=== PATIENT | male | born 1980 | race Caucasian/White ===

== ENCOUNTER 2019-11-07 10:29 | Emergency (ER) | payer SELFPAY ==
[2019-11-07] MEDS ORDERED: METOPROLOL TARTRATE 5 MG/5 ML INJ IV ONE ×3 (11:03→12:26)
[2019-11-07 11:18] LABS: Absolute Lymphocytes (CBC) 1.9 K/uL (0.7-4.9); Basophils % 0.9 % (0-1.3); Hematocrit 49.7 % (39.6-49.0); Lymphocytes % 24.3 % (15.3-44.8); MPV 9.3 fL (7.6-11.3); RBC Red Blood Cell Count 4.94 M/uL (4.33-5.43)
--- NOTE | 2019-11-07 11:18 | RAD REPORT ---
EXAM DESCRIPTION: RAD - Chest Single View - 11/07/2019 11:01 am CLINICAL HISTORY: CHEST PAIN Chest pain. COMPARISON: No comparisons FINDINGS: Portable technique limits examination quality. The lungs are grossly clear. The heart is normal in size. No displaced fractures. IMPRESSION: No acute intrathoracic process suspected.
[2019-11-07 11:19] LABS: Protime INR 0.88
[2019-11-07 11:24] LABS: Urine Blood NEGATIVE (NEG); Urine Glucose NEGATIVE (NEG); Urine Protein 2+ (NEG); Urine Specific Gravity >1.030 (1.005-1.030)
[2019-11-07 11:34] LABS: ALT/SGPT 98 U/L (12-78); AST/SGOT 98 U/L (15-37); Albumin 4.3 g/dL (3.4-5.0); Alkaline Phosphatase 95 U/L (45-117); BUN Blood Urea Nitrogen 11 mg/dL (7-18); Bicarbonate 26 mmol/L (21-32); Bilirubin Direct 0.4 mg/dL (0-0.2); Bilirubin Total 1.7 mg/dL (0.2-1.0); Glucose Level 120 mg/dL (74-106); Magnesium 2.1 mg/dL (1.8-2.4); NT PRO-BNP 877 pg/mL (<125); Potassium 3.9 mmol/L (3.5-5.1); Protein, Total 8.3 g/dL (6.4-8.2); Sodium Level 141 mmol/L (136-145); Troponin (Emerg Dept Use Only) < 0.02 ng/mL (0.0-0.045)
[2019-11-07] MEDS ORDERED: MORPHINE 4 MG/ML SYR ONE (11:39)
[2019-11-07 12:01] LABS: Barbiturates NEGATIVE (NEGATIVE); Benzodiazepines NEGATIVE (NEGATIVE); Cocaine NEGATIVE (NEGATIVE); METHAMPHETAM NEGATIVE (NEGATIVE); Methadone NEGATIVE (NEGATIVE); Opiates NEGATIVE (NEGATIVE); Phencyclidine NEGATIVE (NEGATIVE); THC Cannibis POSITIVE (NEGATIVE)
[2019-11-07] MEDS ORDERED: METOPROLOL TAR 50 MG TAB ONE (13:13)
[2019-11-07] MEDS ORDERED: RIVAROXABAN 20 MG TABLET PO ONE (13:30)
--- NOTE | 2019-11-07 14:27 | ER ---
Nurse's Notes [facility] Name: Andi Yusuf Age: 38 yrs Sex: Male : 1980 Arrival Date: 11/07/2019 Time: 10:30 Bed 17 Private MD: Diagnosis: Atrial fibrillation and flutter Presentation: 11/06 10:42 Chief complaint: Patient states: Chest pain, palpitations, SOB since 1030 last night, ph hx of a fib, takes metoprolol and xarelto but has been out of xarelto for 3 days. Coronavirus screen: Patient denies a cough. Patient reports shortness of breath or difficulty breathing. Patient denies measured and/or subjective temperature greater than 100.4F prior to today's visit. Patient denies travel on a cruise ship or to a country the [facility] currently lists as an affected area. Patient denies contact with known and/or suspected case of COVID-19. Ebola Screen: No symptoms or risks identified at this time. Initial Sepsis Screen: Does the patient meet any 2 criteria? No. Patient's initial sepsis screen is negative. Does the patient have a suspected source of infection? No. Patient's initial sepsis screen is negative. Risk Assessment: Do you want to hurt yourself or someone else? Patient reports no desire to harm self or others. Onset of symptoms was November 07, 2019. 10:42 Method Of Arrival: Wheelchair 10:42 Acuity: ANABELLE 2 ph Triage Assessment: 10:45 General: Appears in no apparent distress. uncomfortable, Behavior is cooperative, bp appropriate for age, anxious. Pain: Complains of pain in chest. EENT: No deficits noted. Neuro: Level of Consciousness is awake, alert, obeys commands, Oriented to person, place, time, situation, Appropriate for age. Cardiovascular: Rhythm is atrial fibrillation with rapid ventricular response. Respiratory: Airway is patent Respiratory effort is even, unlabored, Respiratory pattern is regular, symmetrical. GI: Reports nausea. : No signs and/or symptoms were reported regarding the genitourinary system. Derm: No deficits noted. Musculoskeletal: No deficits noted. Historical: - Allergies: 10:45 No Known Allergies; ph - Home Meds: 10:45 Xarelto oral oral [Active]; Metoprolol Tartrate Oral [Active]; ph - PMHx: 10:45 Atrial Fib; Diverticulitis; ph - PSHx: 10:45 colon resection; ph - Immunization history:: Adult Immunizations unknown. - Social history:: Smoking status: Patient reports the use of cigarette tobacco products, smokes one pack cigarettes per day. Screenin:45 Abuse screen: Denies threats or abuse. Denies injuries from another. Nutritional bp screening: No deficits noted. Tuberculosis screening: No symptoms or risk factors identified. Fall Risk None identified. Assessment: 10:45 General: SEE TRIAGE NOTE. Pain: Pain does not radiate. Pain began 1 day ago. bp 11:45 Reassessment: Patient and/or family updated on plan of care and expected duration. Pain ah level reassessed. No needs voiced at this time. 12:45 Reassessment: Patient and/or family updated on plan of care and expected duration. Pain ah level reassessed. Pt states that pain is better but not completely gone. No needs voiced at this time. 13:44 Reassessment: Explained to pt that we are waiting on a medication from pharmacy. Called pharmacy to check on med and they stated that they have been in a meeting and will bring it shortly. Pt voiced understanding. No other needs voiced at this time. 14:30 Reassessment: Discharge instructions given at this time. Advised Pt to follow up with lamp shades supervisor as directed. Pt voiced understanding. Educated on prescription. Vital Signs: 10:42 BP 150 / 122; Pulse 138; Resp 14; Temp 98.3(O); Pulse Ox 98% on R/A; Weight 108.86 kg; ph Height 6 ft. 3 in. (190.50 cm); Pain 9/10; 11:00 BP 159 / 127; Pulse 115; Resp 16; Pulse Ox 98% ; bp 11:10 BP 135 / 92; Pulse 108; Resp 20; Pulse Ox 97% ; ah 11:20 BP 142 / 118; Pulse 105; Resp 20; Pulse Ox 98% ; ah 11:30 BP 145 / 118; Pulse 105; Resp 22; Pulse Ox 97% ; ah 13:00 BP 155 / 114; Pulse 115; Resp 15; Pulse Ox 97% ; ah 14:10 BP 145 / 98; Pulse 103; Resp 16; Pulse Ox 98% ; 10:42 Body Mass Index 30.00 (108.86 kg, 190.50 cm) ph ED Course: 10:30 Patient arrived in ED. mr 10:35 Nadeen Hemphill, RN is Primary Nurse. 10:35 Sherif Barron MD is Attending Physician. 7 10:44 Triage completed. ph 10:45 Inserted saline lock: 18 gauge in right antecubital area, using aseptic technique. bp Blood collected. 10:45 Arm band placed on. bp 10:45 Patient has correct armband on for positive identification. Bed in low position. Call bp light in reach. Side rails up X2. business technology analyst on. Pulse ox on. NIBP on. 11:02 XRAY Chest (1 view) In Process Unspecified. EDMS 14:26 Annika Mercedes MD is Referral Physician. 7 14:26 Maurice Li MD is Referral Physician. [facility] 14:30 No provider procedures requiring assistance completed. IV discontinued, intact, ah bleeding controlled, No redness/swelling at site. Patient maintains SpO2 saturation greater than 95% on room air. Administered Medications: 11:05 Drug: Lopressor 5 mg Route: IVP; Site: right antecubital; 12:05 Follow up: Response: No adverse reaction 11:35 Drug: morphine 4 mg Route: IVP; Site: right antecubital; 17:04 Follow up: Response: No adverse reaction 11:38 Drug: Lopressor 5 mg Route: IVP; Site: right antecubital; 12:30 Follow up: Response: No adverse reaction 12:20 Drug: Metoprolol 5 mg Route: IVP; Site: right antecubital; 13:46 Follow up: Response: No adverse reaction 13:15 Drug: Metoprolol TARTRATE (Lopressor) 50 mg Route: PO; 14:15 Follow up: Response: No adverse reaction 14:22 Drug: Xarelto 20 mg Route: PO; 5 17:01 Follow up: Response: No adverse reaction; Medication administered at discharge. Outcome: 14:27 Discharge ordered by . 7 14:30 Discharged to home ambulatory. 14:30 Condition: good 14:30 Discharge instructions given to patient, Instructed on discharge instructions, follow up and referral plans. medication usage, Demonstrated understanding of instructions, follow-up care, medications, Prescriptions given X 1. 15:00 Patient left the ED. Signatures: Dispatcher [employer] EDMS Whitley Jean RN RN dm5 Nola Javier Vesta Sims RN RN ph Peltier, Brian, RN RN bp Harris, Amy, RN RN ah Holmes, Maurice, MD MD mh7
--- NOTE | 2019-11-07 14:28 | EDPHYS ---
Physician Documentation [facility] Name: Andi Yusuf Age: 38 yrs Sex: Male : 1980 Arrival Date: 11/07/2019 Time: 10:30 Bed 17 Private MD: ED Physician Sherif Barron HPI: 11/06 10:49 This 38 yrs old Male presents to ER via Wheelchair with complaints of Chest mh7 Pain. 10:49 The patient or guardian reports chest pain that is located primarily in the substernal mh7 area. Onset: yesterday. The pain does not radiate. Associated signs and symptoms: Pertinent positives: nausea, palpitations, shortness of breath, Pertinent negatives: abdominal pain, cough, diaphoresis, dizziness, headache, lower extremity pain, lower extremity swelling, lightheadedness, near syncope, recent travel, syncope. The chest pain is described as stabbing. Duration: The patient or guardian reports multiple episodes, that are intermittent, that wax and wane, with no pattern. Modifying factors: The symptoms are alleviated by nothing. the symptoms are aggravated by nothing. Severity of pain: At its worst the pain was moderate last night, in the emergency department the pain is unchanged. The patient has experienced similar episodes in the past, multiple times. Historical: - Allergies: 10:45 No Known Allergies; ph - Home Meds: 10:45 Xarelto oral oral [Active]; Metoprolol Tartrate Oral [Active]; ph - PMHx: 10:45 Atrial Fib; Diverticulitis; ph - PSHx: 10:45 colon resection; ph - Immunization history:: Adult Immunizations unknown. - Social history:: Smoking status: Patient reports the use of cigarette tobacco products, smokes one pack cigarettes per day. ROS: 10:49 Constitutional: Negative for fever, chills, and weight loss, Eyes: Negative for injury, mh7 pain, redness, and discharge, ENT: Negative for injury, pain, and discharge, Neck: Negative for injury, pain, and swelling, Back: Negative for injury and pain, : Negative for injury, bleeding, discharge, and swelling, MS/Extremity: Negative for injury and deformity, Skin: Negative for injury, rash, and discoloration, Neuro: Negative for headache, weakness, numbness, tingling, and seizure, Psych: Negative for depression, anxiety, suicide ideation, homicidal ideation, and hallucinations, Allergy/Immunology: Negative for hives, rash, and allergies, Endocrine: Negative for neck swelling, polydipsia, polyuria, polyphagia, and marked weight changes, Hematologic/Lymphatic: Negative for swollen nodes, abnormal bleeding, and unusual bruising. Exam: 10:49 Constitutional: This is a well developed, well nourished patient who is awake, alert, mh7 and in no acute distress. Head/Face: Normocephalic, atraumatic. Eyes: Pupils equal round and reactive to light, extra-ocular motions intact. Lids and lashes normal. Conjunctiva and sclera are non-icteric and not injected. Cornea within normal limits. Periorbital areas with no swelling, redness, or edema. Neck: Trachea midline, no thyromegaly or masses palpated, and no cervical lymphadenopathy. Supple, full range of motion without nuchal rigidity, or vertebral point tenderness. No Meningismus. Chest/axilla: Normal chest wall appearance and motion. Nontender with no deformity. No lesions are appreciated. 10:49 Abdomen/GI: Soft, non-tender, with normal bowel sounds. No distension or tympany. No guarding or rebound. No evidence of tenderness throughout. Back: No spinal tenderness. No costovertebral tenderness. Full range of motion. Skin: Warm, dry with normal turgor. Normal color with no rashes, no lesions, and no evidence of cellulitis. MS/ Extremity: Pulses equal, no cyanosis. Neurovascular intact. Full, normal range of motion. Neuro: Awake and alert, GCS 15, oriented to person, place, time, and situation. Cranial nerves II-XII grossly intact. Motor strength 5/5 in all extremities. Sensory grossly intact. Cerebellar exam normal. Normal gait. Psych: Awake, alert, with orientation to person, place and time. Behavior, mood, and affect are within normal limits. 10:49 Cardiovascular: Rate: tachycardic, Rhythm: irregularly irregular, Pulses: no pulse deficits are appreciated, Heart sounds: normal, normal S1and S2, Edema: is not appreciated, JVD: is not appreciated. 10:57 ECG was reviewed by the Attending Physician. [facility] Vital Signs: 10:42 BP 150 / 122; Pulse 138; Resp 14; Temp 98.3(O); Pulse Ox 98% on R/A; Weight 108.86 kg; ph Height 6 ft. 3 in. (190.50 cm); Pain 9/10; 11:00 BP 159 / 127; Pulse 115; Resp 16; Pulse Ox 98% ; bp 11:10 BP 135 / 92; Pulse 108; Resp 20; Pulse Ox 97% ; ah 11:20 BP 142 / 118; Pulse 105; Resp 20; Pulse Ox 98% ; ah 11:30 BP 145 / 118; Pulse 105; Resp 22; Pulse Ox 97% ; ah 13:00 BP 155 / 114; Pulse 115; Resp 15; Pulse Ox 97% ; ah 14:10 BP 145 / 98; Pulse 103; Resp 16; Pulse Ox 98% ; ah 10:42 Body Mass Index 30.00 (108.86 kg, 190.50 cm) ph MDM: 10:46 Patient medically screened. 7 14:24 Differential diagnosis: acute myocardial infarction, coronary artery disease chest wall mh7 pain, costochondritis, myocarditis, arryhtmia. Data reviewed: vital signs, nurses notes, lab test result(s), cardiac enzymes, CBC, electrolytes, urinalysis, urine drug screen, EKG, radiologic studies, plain films. Physician consultation: Annika Mercedes MD was contacted at 12:55, and will see patient in office. 19:46 HEART Score: History: Slightly Suspicious (0), ECG: Non specific repolarization mh7 disturbance / LBTB / PM (1), Age: < or = 45 years (0), Risk Factors: No Risk Factors Known (0), Troponin: < or = 1 x Normal Limit (0), Total Score = 1. Data interpreted: polygraph operator: rate is 95 beats/min, rhythm is atrial fibrillation, Interpretation: atrial fibrillation, Pulse oximetry: on room air is 98 %. Interpretation: normal. Counseling: I had a detailed discussion with the patient and/or guardian regarding: the historical points, exam findings, and any diagnostic results supporting the discharge/admit diagnosis, the presence of at least one elevated blood pressure reading (>120/80) during this emergency department visit, lab results, radiology results, the need for outpatient follow up, to return to the emergency department if symptoms worsen or persist or if there are any questions or concerns that arise at home. ED course: Well appearing, NAD, VSS, no focal neurological deficits. Discussed with patient's biology research assistant Dr. Mercedes who wanted patient to receive medication in the ED then follow up in the office tomorrow. Discussed all test results and recommendations with the patient and answered all of his questions. He will follow up with his doctor but agreed to return to the ED if worsening of symptoms or other concerns.. 11/06 10:46 Order name: Basic Metabolic Panel; Complete Time: 12:12 7 11/06 10:46 Order name: CBC with Diff; Complete Time: 12:12 7 11/06 10:46 Order name: LFT's; Complete Time: 12:12 [facility] 11/06 10:46 Order name: Magnesium; Complete Time: 12:12 [facility] 11/06 10:46 Order name: NT PRO-BNP; Complete Time: 12:12 7 11/06 10:46 Order name: PT-INR; Complete Time: 12:12 [facility] 11/06 10:46 Order name: Troponin (emerg Dept Use Only); Complete Time: 12:12 [facility] 11/06 10:46 Order name: XRAY Chest (1 view); Complete Time: 12:12 [facility] 11/06 10:46 Order name: UDS; Complete Time: 12:12 [facility] 11/06 11:10 Order name: Urine Dipstick--Ancillary (enter results) bd 11/06 12:33 Order name: TSH; Complete Time: 13:50 7 11/06 10:46 Order name: EKG; Complete Time: 10:48 [facility] 11/06 10:46 Order name: Cardiac monitoring; Complete Time: 10:57 [facility] 11/06 10:46 Order name: EKG - Nurse/Tech; Complete Time: 10:57 11/06 10:46 Order name: IV Saline Lock; Complete Time: 10:58 11/06 10:46 Order name: Labs collected and sent; Complete Time: 10:59 [facility] 11/06 10:46 Order name: O2 Per Protocol; Complete Time: 10:59 [facility] 11/06 10:46 Order name: O2 Sat Monitoring; Complete Time: 10:59 mh7 EC:57 Rate is 108 beats/min. Rhythm is irregularly irregular, A fib. QRS [place] is Normal. [place] mh7 interval is normal. QRS interval is normal. QT interval is normal. No Q waves. T waves are Normal. No ST changes noted. Clinical impression: Atrial Fibrillation. Administered Medications: 11:05 Drug: Lopressor 5 mg Route: IVP; Site: right antecubital; 12:05 Follow up: Response: No adverse reaction ah 11:35 Drug: morphine 4 mg Route: IVP; Site: right antecubital; ah 17:04 Follow up: Response: No adverse reaction 11:38 Drug: Lopressor 5 mg Route: IVP; Site: right antecubital; ah 12:30 Follow up: Response: No adverse reaction ah 12:20 Drug: Metoprolol 5 mg Route: IVP; Site: right antecubital; ah 13:46 Follow up: Response: No adverse reaction 13:15 Drug: Metoprolol TARTRATE (Lopressor) 50 mg Route: PO; ah 14:15 Follow up: Response: No adverse reaction 14:22 Drug: Xarelto 20 mg Route: PO; dm5 17:01 Follow up: Response: No adverse reaction; Medication administered at discharge. Disposition: 11/07/19 14:27 Discharged to Home. Impression: Atrial fibrillation and flutter. - Condition is Stable. - Discharge Instructions: Atrial Fibrillation, [id number]. - Prescriptions for Xarelto 20 mg Oral Tablet - take 1 tablet by ORAL route once daily; 30 tablet. - Medication Reconciliation Form, Thank You Letter, Antibiotic Education, Prescription Opioid Use form. - Follow up: Annika Mercedes MD; When: Tomorrow; Reason: Worsening of condition, Continuance of care. Follow up: Maurice Li MD; When: 1 - 2 days; Reason: Worsening of condition, Recheck today's complaints. - Problem is an acute exacerbation. - Symptoms have improved. Signatures: Dispatcher [employer] EDMS Whitley Jean RN RN dm5 Vesta Sims RN RN Nadeen Hemphill RN RN Sherif Barron MD MD mh7 Corrections: (The following items were deleted from the chart) 15:00 14:27 11/07/2019 14:27 Discharged to Home. Impression: Atrial fibrillation and flutter. Condition is Stable. Forms are Medication Reconciliation Form, Thank You Letter, Antibiotic Education, Prescription Opioid Use. Follow up: Annika Mercedes; When: Tomorrow; Reason: Worsening of condition, Continuance of care. Follow up: Maurice Li; When: 1 - 2 days; Reason: Worsening of condition, Recheck today's complaints. Problem is an acute exacerbation. Symptoms have improved. mh7
[2019-11-07 15:09] VITALS: TEMP 98.3
[2019-11-07 15:17] VITALS: BP 145/98; O2SAT 98
--- NOTE | 2019-11-08 16:31 | EKG ---
Test Date: 2019-11-07 Test Time: 10:53:16 Bottle Washing Machine Operator: LAUREN MEASUREMENT RESULTS: Intervals: Rate: 108 [place]: QRSD: 94 QT: 356 QTc: 477 [place]: P: VA: QRS: 14 T: 8 INTERPRETIVE STATEMENTS: Atrial fibrillation with rapid ventricular response Incomplete right bundle branch block Abnormal ECG No previous ECG available for comparison Electronically Signed On 11-08-19 16:27:45 CDT by Maurice Li
--- NOTE | 2019-11-08 16:31 | EKG ---
Test Date: 2019-11-07 Test Time: 12:49:21 Site Supervisor: LAUREN MEASUREMENT RESULTS: Intervals: Rate: 104 [place]: QRSD: 94 QT: 372 QTc: 489 [place]: P: DE: QRS: 2 T: 8 INTERPRETIVE STATEMENTS: Atrial fibrillation with rapid ventricular response Incomplete right bundle branch block Abnormal ECG Compared to ECG 11/07/2019 10:53:16 No significant changes Electronically Signed On 11-08-19 16:27:44 CDT by Maurice Li
== END 2019-11-07 15:00 | disposition home or self-care (01) ==
LOC: ER 10:29
DX: I48.91 Unspecified atrial fibrillation (principal); I48.92 Unspecified atrial flutter
CPT/HCPCS: 36415; 71045; 80048; 80076; 80307; 81003; 83735; 83880; 84443; 84484; 85025; 85610; 93005; 96374; 96375; 99285

== ENCOUNTER 2019-11-15 03:53 | Emergency (ER) | payer SELFPAY ==
[2019-11-15 04:21] LABS: Absolute Lymphocytes (CBC) 3.3 K/uL (0.7-4.9); Basophils % 0.8 % (0-1.3); Hematocrit 43.9 % (39.6-49.0); Lymphocytes % 33.1 % (15.3-44.8); MPV 8.9 fL (7.6-11.3); RBC Red Blood Cell Count 4.32 M/uL (4.33-5.43)
[2019-11-15] MEDS ORDERED: HYDROCODONE/APAP 5/325 MG TAB ONE (04:25)
[2019-11-15 04:28] LABS: Protime INR 0.84
[2019-11-15 04:47] LABS: ALT/SGPT 35 U/L (12-78); AST/SGOT 21 U/L (15-37); Alkaline Phosphatase 92 U/L (45-117); BUN Blood Urea Nitrogen 10 mg/dL (7-18); Bicarbonate 26 mmol/L (21-32); Bilirubin Direct 0.2 mg/dL (0-0.2); Bilirubin Total 0.6 mg/dL (0.2-1.0); Glucose Level 98 mg/dL (74-106); NT PRO-BNP 1246 pg/mL (<125); Potassium 3.7 mmol/L (3.5-5.1); Protein, Total 7.7 g/dL (6.4-8.2); Sodium Level 142 mmol/L (136-145); Troponin (Emerg Dept Use Only) < 0.02 ng/mL (0.0-0.045)
--- NOTE | 2019-11-15 06:53 | EKG ---
Test Date: 2019-11-15 Test Time: 04:01:47 Agile Project Manager: RADHA MEASUREMENT RESULTS: Intervals: Rate: 106 MT: QRSD: 98 QT: 358 QTc: 475 [place]: P: MT: QRS: 3 T: 21 INTERPRETIVE STATEMENTS: Atrial fibrillation with rapid ventricular response with premature ventricular or aberrantly conducted complexes Incomplete right bundle branch block Abnormal ECG Compared to ECG 11/07/2019 12:49:21 Ventricular premature complex(es) now present Electronically Signed On 11-15-19 06:53:05 CDT by Maurice Li
[2019-11-15] MEDS ORDERED: METOPROLOL XL 50 MG TAB PO ONE (07:02)
[2019-11-15] MEDS ORDERED: KETOROLAC 30 MG/ML INJ ONE (07:02)
--- NOTE | 2019-11-15 07:16 | RAD REPORT ---
EXAM DESCRIPTION: CT - Maxillofacial W/Cont - 11/15/2019 6:56 am CLINICAL HISTORY: Facial pain, left-sided facial swelling COMPARISON: None. TECHNIQUE: Axial 3 mm thick images of the paranasal sinuses were obtained following dynamic enhancem ent using nonionic IV contrast. Coronal and sagittal reformatted images were reviewed. All CT scans are performed using dose optimization technique as appropriate and may include automated exposure control or mA/KV adjustment according to patient size. FINDINGS: Edematous/inflammatory stranding present in the soft tissues along the lateral margin left -side mandible. This extends from the mandible level to the skin surface. Hypervascularity is noted i n this region. There is no air or foreign body present. There is a broken tooth in this region with l ucency around the dental roots. No erosive or destructive changes in the mandible. No abscess or drai nable fluid collection identifiable at this time. Patient has a broken tooth on the right without stranding or edema. There is a small focus of disrupt ed cortex believed to be related to dentition and not a nerve root. Parotid and submandibular tissue show no suspicious findings. No suspicious lymphadenopathy. Pharynge al mucosa shows no abnormality. No tonsillar or tongue base abnormality. Epiglottis is unremarkable. Vocal cords are not fully imaged on this study. IMPRESSION: Infectious/ inflammatory edema and hypervascularity in the soft tissues in the midline a nd left-side mandible region. No air or foreign body is present. Patient has at least 1 broken tooth in this region with lucency around the dental roots. There may be some thinning but no gross cortical disruption. This may be the source for the infectious/ inflammat ory changes. Currently no abscess or drainable fluid collection is defined. Patient has a broken tooth on the right side with disruption of the lateral cortical margin of the ma ndible. There is no infectious/ inflammatory change in this region.
--- NOTE | 2019-11-15 07:18 | RAD REPORT ---
EXAM DESCRIPTION: CT - Chest For Pe Angio - 11/15/2019 6:56 am CLINICAL HISTORY: CHEST PAIN COMPARISON: Chest Single View dated 11/15/2019 TECHNIQUE: Dynamically enhanced 3 mm thick images of the chest were obtained during administration o f approximately 150mL Isovue 370 IV contrast. Coronal and oblique MIP reconstruction images were gene rated and reviewed. Exam utilizes a protocol to evaluate the pulmonary arterial tree. All CT scans are performed using dose optimization technique as appropriate and may include automated exposure control or mA/KV adjustment according to patient size. FINDINGS: No pulmonary emboli are identified. The aorta as imaged shows no acute or suspicious finding. No pericardial thickening or effusion. Hear t is mildly enlarged. No infiltrate or mass in the lung parenchyma. No pleural effusion or pleural thickening. No mediastinal or hilar suspicious masses. No chest wall masses or abnormal axillary lymphadenopathy. IMPRESSION: No pulmonary emboli identified. Cardiomegaly without other findings of significant failure or volume overload.
[2019-11-15] MEDS ORDERED: MORPHINE 4 MG/ML SYR ONE (07:59)
[2019-11-15] MEDS ORDERED: ONDANSETRON 4 MG/2 ML VIAL ONE (07:59)
[2019-11-15] MEDS ORDERED: METOPROLOL TARTRATE 5 MG/5 ML INJ IV ONE (08:00)
[2019-11-15] MEDS ORDERED: LIDOCAINE 1% W/EPI 1:100,000 MDV 20 ML VIAL ONE (08:00)
--- NOTE | 2019-11-15 08:04 | EDPHYS ---
Physician Documentation [facility] Name: Andi Yusuf Age: 38 yrs Sex: Male : 1980 Arrival Date: 11/15/2019 Time: 03:56 Bed 8 Private MD: ED Physician Ricardo Domínguez HPI: 11/14 04:16 This 38 yrs old Male presents to ER via Ambulatory with complaints of mh7 Palpitations. Facial Swelling. 04:16 The patient presents with a history of irregular heart beat. Context: The symptoms mh7 occur during sleep. Onset: The symptoms/episode began/occurred today. Duration: The patient or guardian reports multiple episodes, that are intermittent, that wax and wane, with no pattern. Modifying factors: The symptoms are aggravated by nothing. The symptoms are alleviated by nothing. Associated signs and symptoms: Pertinent negatives: chest pain, cough, fever, lightheadedness, nausea, SOB, syncope, near-syncope, unusual stressors, vertigo, vomiting. Severity of symptoms: At their worst the symptoms were moderate today, in the emergency department the symptoms have improved moderately. The patient has experienced similar episodes in the past, multiple times. The patient has been recently seen at the [facility] Emergency Department, last week. Historical: - Allergies: 04:01 No Known Allergies; sg - Home Meds: 04:15 Metoprolol Tartrate Oral [Active]; Xarelto Oral [Active]; mg2 - PMHx: 04:01 Atrial Fib; Diverticulitis; sg - PSHx: 04:01 colon resection; sg - Immunization history:: Adult Immunizations up to date. - Social history:: Smoking status: Patient denies any tobacco usage or history of. ROS: 04:16 Constitutional: Negative for fever, chills, and weight loss, Eyes: Negative for injury, mh7 pain, redness, and discharge. 04:16 Neck: Negative for injury, pain, and swelling, Respiratory: Negative for shortness of breath, cough, wheezing, and pleuritic chest pain, Abdomen/GI: Negative for abdominal pain, nausea, vomiting, diarrhea, and constipation, Back: Negative for injury and pain, : Negative for injury, bleeding, discharge, and swelling, MS/Extremity: Negative for injury and deformity. 04:16 Neuro: Negative for headache, weakness, numbness, tingling, and seizure, Psych: Negative for depression, anxiety, suicide ideation, homicidal ideation, and hallucinations, Allergy/Immunology: Negative for hives, rash, and allergies, Endocrine: Negative for neck swelling, polydipsia, polyuria, polyphagia, and marked weight changes, Hematologic/Lymphatic: Negative for swollen nodes, abnormal bleeding, and unusual bruising. 04:16 ENT: Positive for left facial swelling. 04:16 Skin: Positive for swelling, of the left face. 04:16 Skin: Positive for pain left face. Exam: 04:25 Constitutional: This is a well developed, well nourished patient who is awake, alert, mh7 and in no acute distress. 04:25 Eyes: Pupils equal round and reactive to light, extra-ocular motions intact. Lids and lashes normal. Conjunctiva and sclera are non-icteric and not injected. Cornea within normal limits. Periorbital areas with no swelling, redness, or edema. ENT: Nares patent. No nasal discharge, no septal abnormalities noted. Tympanic membranes are normal and external auditory canals are clear. Oropharynx with no redness, swelling, or masses, exudates, or evidence of obstruction, uvula midline. Mucous membranes moist. Neck: Trachea midline, no thyromegaly or masses palpated, and no cervical lymphadenopathy. Supple, full range of motion without nuchal rigidity, or vertebral point tenderness. No Meningismus. Chest/axilla: Normal chest wall appearance and motion. Nontender with no deformity. No lesions are appreciated. 04:25 Respiratory: Lungs have equal breath sounds bilaterally, clear to auscultation and percussion. No rales, rhonchi or wheezes noted. No increased work of breathing, no retractions or nasal flaring. Abdomen/GI: Soft, non-tender, with normal bowel sounds. No distension or tympany. No guarding or rebound. No evidence of tenderness throughout. Back: No spinal tenderness. No costovertebral tenderness. Full range of motion. 04:25 MS/ Extremity: Pulses equal, no cyanosis. Neurovascular intact. Full, normal range of motion. Neuro: Awake and alert, GCS 15, oriented to person, place, time, and situation. Cranial nerves II-XII grossly intact. Motor strength 5/5 in all extremities. Sensory grossly intact. Cerebellar exam normal. Normal gait. 04:25 Head/face: Noted is swelling, that is mild, of the left cheek, tenderness, that is mild, of the left cheek. 04:25 Cardiovascular: Rate: tachycardic, Rhythm: irregularly irregular, Pulses: no pulse deficits are appreciated, Heart sounds: normal, normal S1and S2, Edema: is not appreciated, JVD: is not appreciated. 04:25 ECG was reviewed by the Attending Physician. Vital Signs: 04:01 BP 162 / 119; Pulse 113; Resp 18; Temp 97.9; Pulse Ox 98% ; Weight 113.4 kg; ea 05:10 BP 145 / 104; Pulse 95; Resp 18; Pulse Ox 99% on R/A; mg2 06:46 BP 160 / 114; Pulse 101; Resp 18; Pulse Ox 100% on R/A; Pain 8/10; mg2 07:21 BP 152 / 108; Pulse 91 MON; Resp 18; Pulse Ox 100% ; sv 08:20 BP 146 / 114; Pulse 76 MON; Resp 17; Pulse Ox 100% ; sv 07:21 A flutter sv 08:20 A flutter sv NIH Stroke Scale Scores: 04:02 NIHSS Score: 1 sg Procedures: 07:53 I \T\ D: Incision and drainage was performed for an abscess of the left Prepped with elvira Betadine, Anesthetized with 5 ml's 1% Lidocaine w/ Epi. Incised with #11 blade. Drained small amount Packed with iodoform gauze, Dressing: sterile 4x4 gauze, the patient tolerated the procedure well. MDM: 04:12 Patient medically screened. [facility] 07:53 Data reviewed: vital signs, nurses notes. Data interpreted: residential monitor: rate is 91 elvira beats/min, Pulse oximetry: on room air is 100 %. Test interpretation: by ED physician or midlevel provider: ECG, plain radiologic studies. Counseling: I had a detailed discussion with the patient and/or guardian regarding: the historical points, exam findings, and any diagnostic results supporting the discharge/admit diagnosis, lab results, radiology results, the need for outpatient follow up, for definitive care, a oreman. Medication response: Zofran markedly relieved the patient's nausea. 07:56 ED course: pt taken over from dr lee, a fib with rvr, not taking meds and co of left elvira facial abscess, swelling and increasing pain, incise and drained abscess , see note. pt explained and understands. 11/14 04:07 Order name: Basic Metabolic Panel; Complete Time: 05:09 mg2 11/14 04:07 Order name: CBC with Diff; Complete Time: 04:45 mg2 11/14 04:07 Order name: LFT's; Complete Time: 05:09 mg2 11/14 04:07 Order name: Magnesium; Complete Time: 05:09 mg2 11/14 04:07 Order name: NT PRO-BNP; Complete Time: 05:09 mg2 11/14 04:07 Order name: PT-INR; Complete Time: 04:45 mg2 11/14 04:07 Order name: Troponin (emerg Dept Use Only); Complete Time: 05:09 mg2 11/14 04:07 Order name: XRAY Chest (1 view) mg2 11/14 06:22 Order name: CT Chest For PE Angio; Complete Time: 07:41 mh7 11/14 06:22 Order name: CT Maxillofacial W/cont; Complete Time: 07:41 mh7 11/14 08:56 Order name: Wound Culture ph 11/14 04:07 Order name: EKG; Complete Time: 04:08 mg2 11/14 04:07 Order name: Cardiac monitoring; Complete Time: 04:07 mg2 11/14 04:07 Order name: EKG - Nurse/Tech; Complete Time: 04:07 mg2 11/14 04:07 Order name: IV Saline Lock; Complete Time: 04:07 mg2 11/14 04:07 Order name: Labs collected and sent; Complete Time: 04:07 mg2 11/14 04:07 Order name: O2 Per Protocol; Complete Time: 04:07 mg2 11/14 04:07 Order name: O2 Sat Monitoring; Complete Time: 04:07 mg2 EC:25 Rate is 106 beats/min. Rhythm is irregularly irregular, A fib. QRS [place] is Normal. SC mh7 interval is normal. QRS interval is normal. QT interval is normal. No Q waves. T waves are Normal. No ST changes noted. Clinical impression: Atrial Fibrillation. Administered Medications: 04:18 Drug: Prescott 5 mg-325 mg 1 tabs {Note: RASS 0.} Route: PO; ea 05:12 Follow up: Response: No adverse reaction mg2 06:54 CANCELLED (Other Intervention Used): TORadol 10 mg PO once ea 06:58 Drug: Metoprolol 100 mg Route: PO; mg2 07:21 Follow up: Response: No adverse reaction sv 06:58 Drug: TORadol 30 mg Route: IVP; Site: right antecubital; mg2 07:21 Follow up: Response: No adverse reaction; No change in condition sv 07:57 Drug: Zofran (Ondansetron) 4 mg Route: IVP; Site: right antecubital; sv 08:20 Follow up: Response: No adverse reaction sv 07:59 Drug: morphine 4 mg {Note: rass1.} Route: IVP; Site: right antecubital; sv 08:20 Follow up: Response: No adverse reaction; Pain is decreased; RASS: Alert and Calm (0) sv 08:01 Drug: Lopressor 5 mg Route: IVP; Site: right antecubital; sv 08:20 Follow up: Response: No adverse reaction sv 09:14 Drug: Doxycycline 200 mg Route: PO; sv 09:14 Follow up: Response: Medication administered at discharge. sv 09:14 Drug: Bactrim (160 mg-800 mg (DS) 1 tablet Route: PO; sv 09:14 Follow up: Response: Medication administered at discharge. sv 09:14 Drug: Xarelto 20 mg Route: PO; sv 09:14 Follow up: Response: Medication administered at discharge. sv Disposition: 11/15/19 08:01 Discharged to Home. Impression: Atrial fibrillation and flutter, Cutaneous abscess, furuncle and carbuncle of face, Essential (primary) hypertension. - Condition is Stable. - Discharge Instructions: Atrial Fibrillation, Hypertension, Hypertension, [id number], How to Take Your Blood Pressure, [id number], Managing Your Hypertension. - Prescriptions for Bactroban 2 % Topical Ointment - Apply to affected area 1 application by TOPICAL route every 12 hours; 30 gram. Lopressor 50 mg Oral Tablet - take 1 tablet by ORAL route every 12 hours; 30 tablet. Tylenol- Codeine #3 300-30 mg Oral Tablet - take 2 tablets by ORAL route every 6 hours As needed; 20 tablet. Doxycycline Hyclate 100 mg Oral Tablet - take 1 tablet by ORAL route every 12 hours; 20 tablet. Bactrim DS 800- 160 mg Oral Tablet - take 1 tablet by ORAL route every 12 hours for 10 days; 20 tablet. Xarelto 20 mg Oral Tablet - take 1 tablet by ORAL route once daily; 20 tablet. - Medication Reconciliation Form, Thank You Letter, Antibiotic Education, Prescription Opioid Use form. - Follow up: Private Physician; When: 2 - 3 days; Reason: Recheck today's complaints, Continuance of care, Re-evaluation by your physician. Follow up: Annika Mercedes MD; When: 1 - 2 days; Reason: Recheck today's complaints, Continuance of care, Re-evaluation by your physician. Follow up: Doni Henriquez MD; When: 2 - 3 days; Reason: Recheck today's complaints, Re-evaluation by your physician. - Problem is new. - Symptoms have improved. NIH Stroke Scale - NIH Stroke Score Date: 11/15/2019 Time: 04:02 Total Score = 1 1a. Level of Consciousness (LOC) - 0(Alert) 1b. Level of Consciousness (LOC) (Year \T\ Age) - 0(Both) 1c. LOC Commands (Open \T\ Closes Eyes/Specialty Transformer Assembler) - 0(Both) 2. Best Gaze (Lateral Gaze Paresis) - 0(Normal) 3. Visual Field Loss - 0(No visual loss) 4. Facial Palsy - 0(Normal) 5a. Left Arm: Motor (10-second hold) - 0(No drift) 5b. Right Arm: Motor (10-second hold) - 0(No drift) 6a. Left Leg: Motor (5-second hold - always test supine) - 0(No drift) 6b. Right Leg: Motor (5-second hold - always test supine) - 0(No drift) 7. Limb Ataxia (finger/nose \T\ heel/sullivan - test with eyes open) - 0(Absent) 8. Sensory Loss (pinprick arms/legs/face) - 1(Mild to moderate loss) 9. Best Language: Aphasia (description/naming/reading) - 0(No aphasia) 10. Dysarthria (speech clarity - read or repeat words) - 0(Normal) 11. Extinction and Inattention (visual/tactile/auditory/spatial/personal) - 0(No abnormality) Initials: sg Signatures: Dispatcher [employer] Millie Elam RN RN sv Gay, Steven, RN RN sg Anderson, Corey, MD MD cha Antunez, Elena, RN Dionicio Rocha ea RN Sherif Light MD MD mh7 Corrections: (The following items were deleted from the chart) 06:54 06:53 TORadol 10 mg PO once ordered. adi joshi 09:15 08:01 11/15/2019 08:01 Discharged to Home. Impression: Atrial fibrillation and sv flutter; Cutaneous abscess, furuncle and carbuncle of face; Essential (primary) hypertension. Condition is Stable. Forms are Medication Reconciliation Form, Thank You Letter, Antibiotic Education, Prescription Opioid Use. Follow up: Private Physician; When: 2 - 3 days; Reason: Recheck today's complaints, Continuance of care, Re-evaluation by your physician. Follow up: Annika Mercedes; When: 1 - 2 days; Reason: Recheck today's complaints, Continuance of care, Re-evaluation by your physician. Follow up: Doni Henriquez; When: 2 - 3 days; Reason: Recheck today's complaints, Re-evaluation by your physician. Problem is new. Symptoms have improved. elvira
--- NOTE | 2019-11-15 08:04 | ER ---
Nurse's Notes [facility] Name: Andi Yusuf Age: 38 yrs Sex: Male : 1980 Arrival Date: 11/15/2019 Time: 03:56 Bed 8 Private MD: Diagnosis: Atrial fibrillation and flutter;Cutaneous abscess, furuncle and carbuncle of face;Essential (primary) hypertension Presentation: 11/14 04:00 Chief complaint: Patient states: Left sided numbness and swelling, reports feeling sg palpitations. States was seen here on the 11/06 and diagnosed with afib. Coronavirus screen: Proceed with normal triage. Ebola Screen: Patient negative for fever greater than or equal to 101.5 degrees Fahrenheit, and additional compatible Ebola Virus Disease symptoms Patient denies exposure to infectious person. Patient denies travel to an Ebola-affected area in the 21 days before illness onset. No symptoms or risks identified at this time. Initial Sepsis Screen: Does the patient meet any 2 criteria? No. Patient's initial sepsis screen is negative. Does the patient have a suspected source of infection? No. Patient's initial sepsis screen is negative. Risk Assessment: Do you want to hurt yourself or someone else? Patient reports no desire to harm self or others. Onset of symptoms was November 15, 2019. Care prior to arrival: None. 04:00 Method Of Arrival: Ambulatory sg 04:00 Acuity: ANABELLE 3 sg Historical: - Allergies: 04:01 No Known Allergies; sg - Home Meds: 04:15 Metoprolol Tartrate Oral [Active]; Xarelto Oral [Active]; mg2 - PMHx: 04:01 Atrial Fib; Diverticulitis; sg - PSHx: 04:01 colon resection; sg - Immunization history:: Adult Immunizations up to date. - Social history:: Smoking status: Patient denies any tobacco usage or history of. Screenin:02 Abuse screen: Denies threats or abuse. Denies injuries from another. Nutritional sg screening: No deficits noted. Tuberculosis screening: No symptoms or risk factors identified. Never had TB. VAN Screening: Arm Drift: Patient shows no arm weakness. Patient is VAN negative. Fall Risk None identified. Assessment: 04:10 General: Appears in no apparent distress. Behavior is appropriate for age. Pain: Denies ea pain. Neuro: Level of Consciousness is awake, alert, obeys commands, Oriented to person, place, time, situation. Cardiovascular: Patient's skin is warm and dry. Respiratory: Airway is patent Respiratory effort is even, unlabored, Respiratory pattern is regular, symmetrical. Derm: swelling noted to left side of face, papule noted to left cheek with clear drainage. 04:13 General: Appears in no apparent distress. comfortable, Behavior is calm, cooperative. mg2 Pain: Complains of pain in face Pain does not radiate. Pain currently is 5 out of 10 on a pain scale. Quality of pain is described as numb, Pain began gradually, 1 hour ago. Neuro: Level of Consciousness is awake, alert, obeys commands, Oriented to person, place, time, situation. Cardiovascular: Reports palpitations, Capillary refill < 3 seconds Patient's skin is warm and dry. Respiratory: Airway is patent Respiratory effort is even, unlabored, Respiratory pattern is regular, symmetrical. GI: No signs and/or symptoms were reported involving the gastrointestinal system. : No signs and/or symptoms were reported regarding the genitourinary system. EENT: No signs and/or symptoms were reported regarding the EENT system. Derm: Skin has lesions on in the left cheek. Musculoskeletal: Circulation, motion, and sensation intact. Capillary refill < 3 seconds. 06:42 Reassessment: patient in CT scan now. mg2 06:55 Reassessment: reported worsening of pain in the face. provider informed and ordered mg2 pain medicine. 07:23 Reassessment: Informed Dr Domínguez of the updated vitals, and pt's request for pain sv medication. Informed what medications he has received and times. Stated he would come see the pt first. General: Appears in no apparent distress. comfortable, Behavior is calm, cooperative, appropriate for age. Pain: Complains of pain in left cheek. Neuro: Level of Consciousness is awake, alert, obeys commands, Oriented to person, place, time, situation. Cardiovascular: Patient's skin is warm and dry. Rhythm is atrial flutter. Respiratory: Airway is patent Respiratory effort is even, unlabored, Respiratory pattern is regular, symmetrical. Derm: Skin is pink, warm \T\ dry. Abscess located on left cheek. 07:57 Reassessment: Patient appears in no apparent distress at this time. No changes from sv previously documented assessment. Patient and/or family updated on plan of care and expected duration. Pain level reassessed. Patient is alert, oriented x 3, equal unlabored respirations, skin warm/dry/pink. 08:06 Reassessment: Pt up for discharge but waiting for I\T\D to be done to the left cheek sv before discharge. 08:48 Reassessment: Dr Domínguez at the bedside performing the I\T\D. sv 09:14 Reassessment: Patient appears in no apparent distress at this time. Patient and/or sv family updated on plan of care and expected duration. Pain level reassessed. Patient is alert, oriented x 3, equal unlabored respirations, skin warm/dry/pink. Patient denies pain at this time. Patient states feeling better. Patient states symptoms have improved. Vital Signs: 04:01 BP 162 / 119; Pulse 113; Resp 18; Temp 97.9; Pulse Ox 98% ; Weight 113.4 kg; ea 05:10 BP 145 / 104; Pulse 95; Resp 18; Pulse Ox 99% on R/A; mg2 06:46 BP 160 / 114; Pulse 101; Resp 18; Pulse Ox 100% on R/A; Pain 8/10; mg2 07:21 BP 152 / 108; Pulse 91 MON; Resp 18; Pulse Ox 100% ; sv 08:20 BP 146 / 114; Pulse 76 MON; Resp 17; Pulse Ox 100% ; sv 07:21 A flutter sv 08:20 A flutter sv NIH Stroke Scale Scores: 04:02 NIHSS Score: 1 sg ED Course: 03:56 Patient arrived in ED. es 03:59 Sherif Barron MD is Attending Physician. mh7 04:00 Inserted saline lock: 20 gauge in right antecubital area, using aseptic technique. mg2 Blood collected. 04:01 Triage completed. sg 04:01 Arm band placed on. sg 04:06 Dionicio Roman, NILS is Primary Nurse. mg2 04:10 Patient has correct armband on for positive identification. Placed in gown. Bed in low ea position. Call light in reach. 04:14 No provider procedures requiring assistance completed. mg2 04:23 XRAY Chest (1 view) In Process Unspecified. EDMS 06:15 Door closed. Warm blanket given. Pillow given. mg2 06:58 CT Chest For PE Angio In Process Unspecified. EDMS 06:58 CT Maxillofacial W/cont In Process Unspecified. EDMS 07:10 Attending Physician role handed off by Sherif Barron MD elvira 07:10 Ricardo Domínguez MD is Attending Physician. elvira 07:20 Primary Nurse role handed off by Dionicio Roman, NILS sv 07:20 Millie Foote, RN is Primary Nurse. sv 07:32 Awaiting re-evaluation by ER provider. sv 07:47 ED physician to see patient. sv 08:00 Annika Mercedes MD is Referral Physician. elvira 08:00 Doni Henriquez MD is Referral Physician. elvira 08:56 Assist provider with I \T\ D: of an abscess on left cheek Set up I\T\D tray. Performed by maurilio Domínguez MD Culture sent to lab. Wound packed. iodoform gauze, Dressing with 4X4s, tape Patient tolerated well. 09:15 IV discontinued, intact, bleeding controlled, No redness/swelling at site. Pressure sv dressing applied. Administered Medications: 04:18 Drug: Elizabeth 5 mg-325 mg 1 tabs {Note: RASS 0.} Route: PO; ea 05:12 Follow up: Response: No adverse reaction mg2 06:54 CANCELLED (Other Intervention Used): TORadol 10 mg PO once ea 06:58 Drug: Metoprolol 100 mg Route: PO; mg2 07:21 Follow up: Response: No adverse reaction sv 06:58 Drug: TORadol 30 mg Route: IVP; Site: right antecubital; mg2 07:21 Follow up: Response: No adverse reaction; No change in condition sv 07:57 Drug: Zofran (Ondansetron) 4 mg Route: IVP; Site: right antecubital; sv 08:20 Follow up: Response: No adverse reaction sv 07:59 Drug: morphine 4 mg {Note: rass1.} Route: IVP; Site: right antecubital; sv 08:20 Follow up: Response: No adverse reaction; Pain is decreased; RASS: Alert and Calm (0) sv 08:01 Drug: Lopressor 5 mg Route: IVP; Site: right antecubital; sv 08:20 Follow up: Response: No adverse reaction sv 09:14 Drug: Doxycycline 200 mg Route: PO; sv 09:14 Follow up: Response: Medication administered at discharge. sv 09:14 Drug: Bactrim (160 mg-800 mg (DS) 1 tablet Route: PO; sv 09:14 Follow up: Response: Medication administered at discharge. sv 09:14 Drug: Xarelto 20 mg Route: PO; sv 09:14 Follow up: Response: Medication administered at discharge. sv Outcome: 08:01 Discharge ordered by . elvira 09:15 Discharged to home ambulatory. sv 09:15 Condition: stable 09:15 Discharge instructions given to patient, Instructed on discharge instructions, follow up and referral plans. no drinking with medication, no driving heavy equipment, medication usage, wound care, Demonstrated understanding of instructions, follow-up care, medications, wound care, Prescriptions given X 6 09:15 Patient left the ED. sv NIH Stroke Scale - NIH Stroke Score Date: 11/15/2019 Time: 04:02 Total Score = 1 1a. Level of Consciousness (LOC) - 0(Alert) 1b. Level of Consciousness (LOC) (Year \T\ Age) - 0(Both) 1c. LOC Commands (Open \T\ Closes Eyes/Tug Boat Captain) - 0(Both) 2. Best Gaze (Lateral Gaze Paresis) - 0(Normal) 3. Visual Field Loss - 0(No visual loss) 4. Facial Palsy - 0(Normal) 5a. Left Arm: Motor (10-second hold) - 0(No drift) 5b. Right Arm: Motor (10-second hold) - 0(No drift) 6a. Left Leg: Motor (5-second hold - always test supine) - 0(No drift) 6b. Right Leg: Motor (5-second hold - always test supine) - 0(No drift) 7. Limb Ataxia (finger/nose \T\ heel/sullivan - test with eyes open) - 0(Absent) 8. Sensory Loss (pinprick arms/legs/face) - 1(Mild to moderate loss) 9. Best Language: Aphasia (description/naming/reading) - 0(No aphasia) 10. Dysarthria (speech clarity - read or repeat words) - 0(Normal) 11. Extinction and Inattention (visual/tactile/auditory/spatial/personal) - 0(No abnormality) Initials: Addendum: 11/18/2019 07:16 Addendum: Culture Results: Positive wound culture. No further action required. eb Bacteria sensitive to prescribed antibiotic. Signatures: Dispatcher [employer] Millie Elam RN RN Galen Humphrey RN RN sg Anderson, Corey, MD MD cha Salyer, Edna es Antunez, Elena, RN RN ea Botello, Elizabeth eb Gardose, Michele, RN RN [facility] [place] Sherif Barron MD MD mh7 Corrections: (The following items were deleted from the chart) 11/14 07:33 07:23 Reassessment: Informed Dr Domínguez of the updated vitals, and pt's sv request for pain medication. Informed what medications he has received and times. sv 08:20 07:59 morphine 4 mg IVP in right antecubital sv sv 11/17 07:21 07:16 Addendum: Culture Results: Positive urine culture. No further action eb required. Bacteria sensitive to prescribed antibiotic. eb
[2019-11-15] MEDS ORDERED: RIVAROXABAN 20 MG TABLET PO ONE (08:15)
[2019-11-15] MEDS ORDERED: DOXYCYCLINE 100 MG CAP PO ONE (08:18)
[2019-11-15] MEDS ORDERED: SMZ./TMP. 800/160 MG TABLET ONE (08:18)
[2019-11-15 09:25] VITALS: BP 145/104; O2SAT 99
[2019-11-15 09:37] VITALS: TEMP 97.9
--- NOTE | 2019-11-15 10:20 | RAD REPORT ---
EXAM DESCRIPTION: RAD - Chest Single View - 11/15/2019 5:59 am CLINICAL HISTORY: Palpitation COMPARISON: None. FINDINGS: Single frontal view of the chest. Cardiomediastinal silhouette: Normal size and contour. Lungs: No consolidation, pneumothorax, or pleural effusion. Bones: No acute osseous abnormality. Leads overlie the chest. Upper abdomen: No abnormality identified. IMPRESSION: 1. No acute pulmonary process identified. Electronically signed by: Wing Vance 11/15/2019 5:31 AM CDT Due to temporary technical issues with the PACS/Fluency reporting system, reports are being signed by the in house radiologist without review as a courtesy to ensure prompt reporting. The interpreting r adiologist is fully responsible for the content of the report.
== END 2019-11-15 09:15 | disposition home or self-care (01) ==
LOC: ER 03:53
PROC: 0J910ZZ Drainage of Face Subcutaneous Tissue and Fascia, Open Approach (ICD-10-PCS; principal; 2019-11-15)
DX: I48.91 Unspecified atrial fibrillation (principal); I48.92 Unspecified atrial flutter; I10 Essential (primary) hypertension; L02.01 Cutaneous abscess of face; L02.02 Furuncle of face; L02.03 Carbuncle of face; R29.701 NIHSS score 1
CPT/HCPCS: 36415; 70487; 71045; 71275; 80048; 80076; 83735; 83880; 84484; 85025; 85610; 87070; 87077; 87186; 87205; 93005; 96374; 96375; 99284; J2405; Q9967

== ENCOUNTER 2019-12-19 17:38 | Emergency (ER) | payer SELFPAY ==
[2019-12-19] MEDS ORDERED: LORazepam 2 MG/ML VIAL ONE (18:26)
[2019-12-19] MEDS ORDERED: NA CHLORIDE 0.9% 1,000 ML ONE (18:27)
[2019-12-19 18:35] LABS: Absolute Lymphocytes (CBC) 4.1 K/uL (0.7-4.9); Basophils % 0.4 % (0-1.3); Hematocrit 47.5 % (39.6-49.0); Lymphocytes % 38.9 % (15.3-44.8); MPV 8.4 fL (7.6-11.3); RBC Red Blood Cell Count 4.72 M/uL (4.33-5.43)
[2019-12-19 18:39] LABS: Protime INR 0.92
--- NOTE | 2019-12-19 18:53 | RAD REPORT ---
EXAM DESCRIPTION: CT - Head C Spine Mpr Wo Con - 12/19/2019 6:42 pm CLINICAL HISTORY: Head and neck pain COMPARISON: None. TECHNIQUE: Computed axial tomography of the head and cervical spine was obtained. Sagittal and coronal reconstruction was performed. All CT scans are performed using dose optimization technique as appropriate and may include automated exposure control or mA/KV adjustment according to patient size. FINDINGS: An intracranial bleed is not seen. The ventricles are normal in caliber. An extra-axial fl uid collection is not noted.Fluid within the visualized sinuses and mastoids is not seen A cervical fracture is not visualized. No dislocation is noted. Spondylosis C5-6 results moderate rig ht foraminal stenosis IMPRESSION: No acute intracranial abnormality is seen. A cervical fracture is not visualized. Moderate right foraminal stenosis C5-6 If the patient continues to have symptoms to suggest intracranial /spinal cord pathology then MRI wou ld be recommended
--- NOTE | 2019-12-19 18:54 | RAD REPORT ---
EXAM DESCRIPTION: Jesse Single View12/19/2019 6:28 pm CLINICAL HISTORY: Chest pain COMPARISON: November 2019 FINDINGS: The lungs appear clear of acute infiltrate. The heart is mildly enlarged IMPRESSION: No acute abnormalities displayed
[2019-12-19] MEDS ORDERED: FOLIC ACID 1 MG, MULTIVITAMINS INJ 10 ML, THIAMINE HCL 100 MG in NA CHLORIDE 0.9% 1,000 ML IV ONE (19:00)
[2019-12-19 19:26] LABS: ALT/SGPT 87 U/L (12-78); AST/SGOT 110 U/L (15-37); Albumin 4.3 g/dL (3.4-5.0); Alkaline Phosphatase 87 U/L (45-117); BUN Blood Urea Nitrogen 9 mg/dL (7-18); Bicarbonate 23 mmol/L (21-32); Bilirubin Direct 0.2 mg/dL (0-0.2); Bilirubin Total 0.9 mg/dL (0.2-1.0); Glucose Level 103 mg/dL (74-106); Magnesium 2.2 mg/dL (1.8-2.4); NT PRO-BNP 151 pg/mL (<125); Potassium 3.4 mmol/L (3.5-5.1); Protein, Total 8.2 g/dL (6.4-8.2); Sodium Level 136 mmol/L (136-145); Troponin (Emerg Dept Use Only) < 0.02 ng/mL (0.0-0.045)
--- NOTE | 2019-12-20 00:13 | ER ---
Nurse's Notes [facility] Name: Andi Yusuf Age: 38 yrs Sex: Male : 1980 Arrival Date: 12/19/2019 Time: 17:39 Bed 16 Private MD: Diagnosis: Suicidal ideations;Alcohol abuse with intoxication Presentation: 12/18 17:44 Chief complaint: Patient states: "I have angina, I hurt all over". Friend and/or ll1 Co-Worker states: Reports SI. Received a text from patient saying goodbye. + ETOH. Verbally aggressive and demanding in triage. Coronavirus screen: Proceed with normal triage. Ebola Screen: Patient denies travel to an Ebola-affected area in the 21 days before illness onset. Initial Sepsis Screen: Does the patient meet any 2 criteria? No. Patient's initial sepsis screen is negative. Risk Assessment: Do you want to hurt yourself or someone else? Patient reports desire/thoughts of hurting themselves or someone else. Provider notified. Onset of symptoms was December 19, 2019. 17:44 Method Of Arrival: Wheelchair ll1 17:44 Acuity: ANABELLE 2 ll1 19:03 Initial Sepsis Screen: Does the patient have a suspected source of infection? No. ph Patient's initial sepsis screen is negative. Historical: - Allergies: 17:46 No Known Allergies; ll1 - PMHx: 17:46 Atrial Fib; Diverticulitis; ll1 - PSHx: 17:46 colon resection; ll1 - Immunization history:: Adult Immunizations unknown. - Social history:: Smoking status: Patient reports the use of cigarette tobacco products, smokes one pack cigarettes per day. Patient uses alcohol, on a daily basis. Patient/guardian denies using street drugs. Screenin:57 Abuse screen: Denies threats or abuse. Denies injuries from another. Nutritional ph screening: No deficits noted. Tuberculosis screening: No symptoms or risk factors identified. 18:46 Fall Risk No fall in past 12 months (0 pts). Secondary diagnosis (15 points) ph intoxicated. IV access (20 points). Ambulatory Aid- None/Bed Rest/Nurse Assist (0 pts). Gait- Impaired (20 pts.). Mental Status- Overestimates/Forgets Limitations (15 pts.). Total Velazco Fall Scale indicates High Risk Score (45 or more points). Fall prevention measures have been instituted. Side Rails Up X 2 Placed Close to Nursing Station Frequent Obs/Assessments Occuring As available patient and family educated on Fall Prevention Program and Strategies. Assessment: 17:56 Reassessment: Pt noted to be yelling, cursing , agitated and aggressive, appears to be ph intoxicated, friend remains at bedside. 18:30 General: Appears in no apparent distress. Behavior is cooperative, agitated, fussy, ph Denies fever, chills. Pain: Complains of pain in chest Pain does not radiate. Neuro: Level of Consciousness is awake, alert, obeys commands, Oriented to person, place, situation. Cardiovascular: Reports chest pain, palpitations, Capillary refill < 3 seconds in bilateral fingers Patient's skin is warm and dry. Respiratory: Respiratory: Airway is patent Respiratory effort is even, unlabored, Respiratory pattern is regular, symmetrical. Derm: Skin is intact, Skin is pink, warm \\T\\ dry. Musculoskeletal: Circulation, motion, and sensation intact. Range of motion: intact in all extremities. 19:01 Reassessment: Patient appears in no apparent distress at this time. Patient and/or ph family updated on plan of care and expected duration. Pain level reassessed. Pt appears to be sleeping, VSS. 19:06 Reassessment: Friend no longer at bedside, did take car/house keys home with him, pt ph states that it is okay. 19:10 Reassessment: Friend no longer at the bedside. Report received from Vesta Sims RN. jb4 Instructed to wait on taking EKG due to pt showing violent tendencies upon arrival. PT is resting in bed with eyes closed. Respirations are even and unlabored with no s/s of pain or distress noted. 20:00 Reassessment: Patient appears in no apparent distress at this time. No changes from jb4 previously documented assessment. Patient and/or family updated on plan of care and expected duration. Pain level reassessed. 21:00 Reassessment: Patient appears in no apparent distress at this time. No changes from jb4 previously documented assessment. Patient and/or family updated on plan of care and expected duration. Pain level reassessed. 22:00 Reassessment: Patient appears in no apparent distress at this time. No changes from jb4 previously documented assessment. Patient and/or family updated on plan of care and expected duration. Pain level reassessed. 23:00 Reassessment: Patient appears in no apparent distress at this time. No changes from jb4 previously documented assessment. Patient and/or family updated on plan of care and expected duration. Pain level reassessed. ER provider wants to attempt EKG now that patient has had time to rest and was given ativan. 12/19 00:00 Reassessment: PT continues to be uncooperative. Unable to obtain vital signs or EKG. Pt jb4 standing unsteadily at the bedside. Pt given a warm blanket. Pt states " I want to go outside. I am cold. I want a cigarette." Pt informed he cannot leave ED due to complaint of SI, and intoxication, and that if he tried to leave, security would have to be called. Offered to ask for a nicotine patch pt refuse. Pt states " I want to go outside! Go ahead and call security I don't care. I want a fucking cigarette! The patches don't work. I am going outside!" Fluids discontinued, IV d/c'ed intact and bandage applied. Charge nurse notified and ask to call [place] [employer]. Pt ambulating around ED yelling " I want to go outside, I want a cigarette." Stopped at the EMS bay doors. Informed that I cannot open the doors for him and that he would need a code. Pt states " So give me the fucking code and let me go outside!" Pt ambulated back to front of ED and out of the ED with a continued unsteady gait. Vital Signs: 12/18 17:44 BP 117 / 84; Pulse 68; Resp 20; Temp 98.2; Pulse Ox 98% ; Pain 10/10; ll1 ED Course: 17:39 Patient arrived in ED. ag5 17:46 Triage completed. ll1 17:46 Arm band placed on. ll1 17:55 Krishan Ortez NP is PHCP. pm1 17:55 Ricardo Domínguez MD is Attending Physician. pm1 17:56 Vesta Sims, NLIS is Primary Nurse. ph 18:20 Initial lab(s) drawn, by me, sent to lab. Inserted saline lock: 20 gauge in left ph antecubital area, using aseptic technique. Blood collected. Patient maintains SpO2 saturation greater than 95% on room air. 18:28 XRAY Chest (1 view) In Process Unspecified. EDMS 18:42 CT Head C Spine In Process Unspecified. EDMS 18:45 Patient has correct armband on for positive identification. Bed in low position. Call ph light in reach. Side rails up X 1. Pulse ox on. NIBP on. Verbal reassurance given. Administered Medications: 18:24 Drug: NS 0.9% 1000 ml Route: IV; Rate: 1 bolus; Site: left antecubital; ph 23:30 Follow up: Response: No adverse reaction; IV Status: Fluids D/c'ed due to pt trying to jb4 elope.; IV Intake: 800ml 18:25 Drug: Ativan 2 mg Route: IVP; Site: left antecubital; ph 20:00 Follow up: Response: No adverse reaction jb4 18:54 Drug: Banana Bag - (NS 0.9% 1000 ml, foLIC Acid 1 mg, Thiamine 100 mg, Multivitamin 1 ph amp) Route: IV; Rate: calculated rate; Site: left antecubital; 23:30 Follow up: Response: No adverse reaction; IV Status: Infusion d/c'ed due to patient jb4 trying to elope.; IV Intake: 750ml Intake: 23:30 IV: 750ml; Total: 750ml. jb4 23:30 IV: 800ml; Total: 1550ml. jb4 Outcome: 12/19 00:00 Eloped after seeing physician jb4 00:25 Patient left the ED. jb4 Signatures: Dispatcher [employer] EDNY Vesta Sims RN RN Krishan Ortez, FINISHING OPERATOR FINISHING OPERATOR pm1 Vahid Koehler RN RN jb4 Kasia Calvin ag5 Elena Moura, NILS RN ll1 Corrections: (The following items were deleted from the chart) 12/18 18:13 17:44 Chief complaint: Friend and/or Co-Worker states: Reports SI. Hurts all over chest ll1 oain. + ETOH ll1 12/19 00:25 00:19 Reassessment: PT continues to be uncooperative. Unable to obtain vital signs or jb4 EKG. Pt standing unsteadily at the bedside. Pt given a warm blanket. Pt states " I want to go outside. I am cold. I want a cigarette." Pt informed he cannot leave ED due to complaint of SI, and intoxication, and that if he tried to leave, security would have to be called. Offered to ask for a nicotine patch pt refuse. Pt states " I want to go outside! Go ahead and call security I don't care. I want a fucking cigarette! The patches don't work. I am going outside!" Fluids discontinued, IV d/c'ed intact and bandage applied. Charge nurse notified and ask to call [employer]. Pt ambulating around ED yelling " I want to go outside, I want a cigarette." Stopped at the EMS bay doors. Informed that I cannot open the doors for him and that he would need a code. Pt states " So give me the fucking code and let me go outside!" Pt ambulated back to front of ED and out of the ED with a continued unsteady gait. jb4
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
[2019-12-20 00:44] VITALS: BP 117/84; TEMP 98.2; O2SAT 98
== END 2019-12-20 00:25 | disposition left against medical advice (07) ==
LOC: ER 17:38
DX: F10.129 Alcohol abuse with intoxication, unspecified (principal); R45.851 Suicidal ideations; F17.210 Nicotine dependence, cigarettes, uncomplicated
CPT/HCPCS: 36415; 70450; 71045; 72125; 80048; 80076; 80320; 80329; 83735; 83880; 84484; 85025; 85610; 85730; 93005; 96365; 96366; 96375; 99284; J3411; J7030

== ENCOUNTER 2019-12-20 10:02 | Emergency (ER) | payer SELFPAY ==
[2019-12-20] MEDS ORDERED: DIAZEPAM 10 MG/2 ML INJ SYRINGE ONE (10:40)
[2019-12-20] MEDS ORDERED: NA CHLORIDE 0.9% 1,000 ML ONE ×2 (10:41→13:01)
[2019-12-20 11:00] LABS: Absolute Lymphocytes (CBC) 1.9 K/uL (0.7-4.9); Basophils % 0.6 % (0-1.3); Lymphocytes % 22.1 % (15.3-44.8); MPV 8.5 fL (7.6-11.3); RBC Red Blood Cell Count 4.51 M/uL (4.33-5.43)
[2019-12-20 11:02] LABS: Protime INR 0.92
--- NOTE | 2019-12-20 11:12 | RAD REPORT ---
EXAM DESCRIPTION: Jesse Single View12/20/2019 10:56 am CLINICAL HISTORY: Chest pain COMPARISON: December 19, 2019 FINDINGS: The lungs appear clear of acute infiltrate. The heart is normal size IMPRESSION: No acute abnormalities displayed
[2019-12-20 11:30] LABS: ALT/SGPT 87 U/L (12-78); AST/SGOT 90 U/L (15-37); Albumin 4.3 g/dL (3.4-5.0); Alkaline Phosphatase 89 U/L (45-117); BUN Blood Urea Nitrogen 10 mg/dL (7-18); Bicarbonate 25 mmol/L (21-32); Bilirubin Direct 0.3 mg/dL (0-0.2); Bilirubin Total 1.1 mg/dL (0.2-1.0); Glucose Level 104 mg/dL (74-106); Magnesium 2.2 mg/dL (1.8-2.4); NT PRO-BNP 52 pg/mL (<125); Potassium 3.5 mmol/L (3.5-5.1); Protein, Total 8.1 g/dL (6.4-8.2); Sodium Level 142 mmol/L (136-145); Troponin (Emerg Dept Use Only) < 0.02 ng/mL (0.0-0.045)
[2019-12-20 13:27] LABS: Urine Blood NEGATIVE (NEG); Urine Glucose NEGATIVE (NEG); Urine Protein NEGATIVE (NEG); Urine Specific Gravity 1.005 (1.005-1.030); Urine pH 5.5 (5.0-7.0)
[2019-12-20] MEDS ORDERED: LORazepam 2 MG/ML VIAL ONE (13:32)
--- NOTE | 2019-12-20 15:19 | RAD REPORT ---
EXAM DESCRIPTION: RAD - Hand Left 3 View - 12/20/2019 2:44 pm CLINICAL HISTORY: PAIN, hand pain, trauma, pain to fourth and fifth MCP joint regions COMPARISON: None. FINDINGS: No fracture, dislocation or periosteal reaction noted. No foreign body or other soft tissu e abnormality. IMPRESSION: Negative left hand examination.
[2019-12-20] MEDS ORDERED: FENTANYL CITR 100 MCG/2 ML ONE (15:54)
--- NOTE | 2019-12-20 16:55 | ER ---
Nurse's Notes [facility] Name: Andi Yusuf Age: 38 yrs Sex: Male : 1980 Arrival Date: 12/20/2019 Time: 10:04 Bed 16 Private MD: Diagnosis: Chest pain, unspecified;Suicidal ideations Presentation: 12/19 10:07 Chief complaint: Patient states: My friends brought me here last night, detoxing very ca1 hard. Woke up and didn't know where I was and what is going on. I took off last night. I have A-fib and and it's hard on my detoxing. I am here today to detox. I am hurting all over, pins and needles. My heart feels like it's about to explode and I can't stop sweating. Coronavirus screen: Proceed with normal triage. Patient denies a cough. Patient denies shortness of breath or difficulty breathing. Patient denies measured and/or subjective temperature greater than 100.4F prior to today's visit. Patient denies travel on a cruise ship or to a country the [facility] currently lists as an affected area. Patient denies contact with known and/or suspected case of COVID-19. Ebola Screen: Patient negative for fever greater than or equal to 101.5 degrees Fahrenheit, and additional compatible Ebola Virus Disease symptoms Patient denies exposure to infectious person. Patient denies travel to an Ebola-affected area in the 21 days before illness onset. No symptoms or risks identified at this time. Initial Sepsis Screen: Does the patient meet any 2 criteria? No. Patient's initial sepsis screen is negative. Does the patient have a suspected source of infection? No. Patient's initial sepsis screen is negative. Risk Assessment: Do you want to hurt yourself or someone else? Patient reports no desire to harm self or others. Onset of symptoms was December 20, 2019. 10:07 Method Of Arrival: Ambulatory ca1 10:07 Acuity: ANABELLE 3 ca1 Historical: - Allergies: 10:12 No Known Allergies; ca1 - Home Meds: 10:12 Metoprolol Tartrate Oral [Active]; Xarelto Oral [Active]; ca1 - PMHx: 10:12 Atrial Fib; Diverticulitis; ca1 - PSHx: 10:12 colon resection; ca1 - Immunization history:: Adult Immunizations up to date. - Social history:: Smoking status: Patient reports the use of cigarette tobacco products, smokes one pack cigarettes per day. Patient uses alcohol, patient/guardian reports chronic longstanding heavy alcohol consumption. Screenin:15 Abuse screen: Denies threats or abuse. Denies injuries from another. Nutritional ph screening: No deficits noted. Tuberculosis screening: No symptoms or risk factors identified. Fall Risk None identified. Assessment: 11:13 General: Appears in no apparent distress. 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 Pain: Complains of pain in chest Pain does not radiate. Neuro: Level of Consciousness is awake, alert, obeys commands, Oriented to person, place, time, situation. Cardiovascular: Reports chest pain, palpitations, Denies nausea, shortness of breath, vomiting, Capillary refill < 3 seconds in bilateral fingers Patient's skin is warm and dry. Respiratory: Airway is patent Respiratory effort is even, unlabored, Respiratory pattern is regular, symmetrical. GI: No signs and/or symptoms were reported involving the gastrointestinal system. Derm: Skin is intact, is healthy with good turgor, Skin is pink, warm \\T\\ dry. Musculoskeletal: Circulation, motion, and sensation intact. Range of motion: intact in all extremities. 12:02 Reassessment: Patient appears in no apparent distress at this time. Patient and/or ph family updated on plan of care and expected duration. Pain level reassessed. Pt resting quietly, VSS. 14:13 Reassessment: Patient appears in no apparent distress at this time. Patient and/or ph family updated on plan of care and expected duration. Pain level reassessed. Pt c/o L hand pain, swelling noted, states that he"must have punched something yesterday" ERP notified, Xray ordered of hand. 15:07 Reassessment: Patient appears in no apparent distress at this time. Patient and/or ph family updated on plan of care and expected duration. Pain level reassessed. Patient is alert, oriented x 3, equal unlabored respirations, skin warm/dry/pink. Repeat cardiac enzymes and ETOH drawn and sent to lab, VSS. 16:00 Reassessment: Patient appears in no apparent distress at this time. Patient and/or ph family updated on plan of care and expected duration. Pain level reassessed. Patient is alert, oriented x 3, equal unlabored respirations, skin warm/dry/pink. 17:00 Reassessment: Patient appears in no apparent distress at this time. Patient is alert, ph oriented x 3, equal unlabored respirations, skin warm/dry/pink. Pt noted to be leaving ED, states, " My friend is here to get me and I don't want her to have to wait. Tomorrow my mother in law is coming to get me to take me to rehab." No IV in place, ERP notified. Vital Signs: 10:07 BP 128 / 93; Pulse 81; Resp 15 S; Temp 99.5(TE); Pulse Ox 98% on R/A; Weight 108.86 kg ca1 (R); Height 6 ft. 3 in. (190.50 cm) (R); 12:03 BP 117 / 77; Pulse 70; Resp 18; Pulse Ox 100% on R/A; ph 13:00 BP 135 / 98; Pulse 70; Resp 18; Pulse Ox 99% on R/A; ph 14:11 BP 151 / 60; Pulse 73; Resp 18; Pulse Ox 98% on R/A; ph 15:09 BP 148 / 75; Pulse 72; Resp 18; Pulse Ox 100% on R/A; ph 16:00 BP 137 / 89; Pulse 76; Resp 18; Pulse Ox 98% on R/A; ph 10:07 Body Mass Index 30.00 (108.86 kg, 190.50 cm) ca1 ED Course: 10:04 Patient arrived in ED. ag5 10:05 Burt Vann PA is PHCP. jmm 10:05 Angelo Tijerina MD is Attending Physician. jmm 10:11 Triage completed. ca1 10:12 Arm band placed on right wrist. ca1 10:28 Vesta Sims, NILS is Primary Nurse. ph 10:50 Inserted saline lock: 20 gauge in left antecubital area, using aseptic technique. Blood ph collected. 10:55 XRAY Chest (1 view) In Process Unspecified. EDMS 11:05 Patient has correct armband on for positive identification. Placed in gown. Bed in low mh5 position. Call light in reach. Side rails up X 1. Warm blanket given. color television console monitor on. Pulse ox on. NIBP on. 11:05 EKG done, by ED staff, reviewed by Angelo Tijerina MD. [facility] 14:44 Hand Left 3 View XRAY In Process Unspecified. EDMS 15:09 No provider procedures requiring assistance completed. ph 16:00 IV discontinued, intact, No redness/swelling at site. Pressure dressing applied, pt c/o ph pain to site, IV d/c. 16:18 called the [facility] crisis line/ Mandi will give patient information to the screener eb workers compensation claims supervisor who will call us back. Administered Medications: 10:54 Drug: Valium 5 mg Route: IVP; Site: left antecubital; ph 11:30 Follow up: Response: No adverse reaction ph 10:54 Drug: NS 0.9% 1000 ml Route: IV; Rate: 1 bolus; Site: left antecubital; ph 12:30 Follow up: Response: No adverse reaction; IV Status: Completed infusion; IV Intake: ph 1000ml 13:39 Drug: Ativan 1 mg Route: IVP; Site: left antecubital; ph 14:00 Follow up: Response: No adverse reaction ph 13:40 Drug: NS 0.9% 1000 ml Route: IV; Rate: 1 bolus; Site: left antecubital; ph 14:00 Follow up: Response: No adverse reaction; IV Status: Completed infusion ph Intake: 12:30 IV: 1000ml; Total: 1000ml. ph Outcome: 17:14 Patient left the ED. ph 17:14 Eloped from patient exam room, after seeing physician Time discovered patient gone: ph December 20, 2019 at 17:00 17:14 Condition: stable Signatures: Dispatcher [employer] EDMS Burt Vann PA PA jmm Hall, Patricia, RN RN Aanstacia Muro [facility] Yarely Mcclain Cheryl, RN RN ca1 [place], Ajare [facility]
--- NOTE | 2019-12-20 16:55 | EDPHYS ---
Physician Documentation [facility] Name: Andi Yusuf Age: 38 yrs Sex: Male : 1980 Arrival Date: 12/20/2019 Time: 10:04 Bed 16 Private MD: ED Physician Angelo Tijerina HPI: 12/19 10:17 This 38 yrs old Male presents to ER via Ambulatory with complaints of Pain jmm All Over. 10:17 The patient or guardian reports chest pain that is located primarily in the substernal jmm area. Onset: 5 day(s) ago. The pain does not radiate. The chest pain is described as crushing. Duration: The patient or guardian reports a single episode, that is still ongoing, and unchanged. This is a 38 year old male with a history of atrial fibrillation, diverticulitis that presents to the ED with complaints of ongoing substernal chest pain for the past 2 days, which has been constant. Patient is also concerned about wanting to detox from alcohol. . Historical: - Allergies: 10:12 No Known Allergies; ca1 - Home Meds: 10:12 Metoprolol Tartrate Oral [Active]; Xarelto Oral [Active]; ca1 - PMHx: 10:12 Atrial Fib; Diverticulitis; ca1 - PSHx: 10:12 colon resection; ca1 - Immunization history:: Adult Immunizations up to date. - Social history:: Smoking status: Patient reports the use of cigarette tobacco products, smokes one pack cigarettes per day. Patient uses alcohol, patient/guardian reports chronic longstanding heavy alcohol consumption. ROS: 10:17 Constitutional: Negative for fever, chills, and weight loss. jmm 10:17 Cardiovascular: Positive for chest pain. 10:17 All other systems are negative. Exam: 10:17 Head/Face: atraumatic. Eyes: EOMI, no conjunctival erythema appreciated ENT: Moist jmm Mucus Membranes Neck: Trachea midline, Supple Chest/axilla: Normal chest wall appearance and motion. Cardiovascular: Regular rate and rhythm. No edema appreciated Respiratory: Normal respirations, no respiratory distress appreciated Abdomen/GI: Non distended, soft Back: Normal ROM Skin: General appearance color normal MS/ Extremity: Moves all extremities, no obvious deformities appreciated, no edema noted to the lower extremities Neuro: Awake and alert, normal gait Psych: Behavior is normal, Mood is normal, Patient is cooperative and pleasant 10:17 Constitutional: The patient appears alert, awake, anxious. Vital Signs: 10:07 BP 128 / 93; Pulse 81; Resp 15 S; Temp 99.5(TE); Pulse Ox 98% on R/A; Weight 108.86 kg ca1 (R); Height 6 ft. 3 in. (190.50 cm) (R); 12:03 BP 117 / 77; Pulse 70; Resp 18; Pulse Ox 100% on R/A; ph 13:00 BP 135 / 98; Pulse 70; Resp 18; Pulse Ox 99% on R/A; ph 14:11 BP 151 / 60; Pulse 73; Resp 18; Pulse Ox 98% on R/A; ph 15:09 BP 148 / 75; Pulse 72; Resp 18; Pulse Ox 100% on R/A; ph 16:00 BP 137 / 89; Pulse 76; Resp 18; Pulse Ox 98% on R/A; ph 10:07 Body Mass Index 30.00 (108.86 kg, 190.50 cm) ca1 MDM: 10:17 Patient medically screened. [facility] 16:51 Data reviewed: vital signs, nurses notes, lab test result(s), EKG, radiologic studies. [facility] ED course: The patient had Texted messages concerning for SI last night while intoxicated. I discussed this with the patient whom stated his friends had removed any object that would be used to harm himself and his mother would be flying in tomorrow to take him to a detox facility in [place]. I discussed the need to further discuss this with [facility], the patient had agreed. Patient later eloped from the ED prior to disposition. . 12/19 10:25 Order name: Basic Metabolic Panel; Complete Time: 11: [facility] 12/19 10:25 Order name: CBC with Diff; Complete Time: 11:02 [facility] 12/19 10:25 Order name: LFT's; Complete Time: : [facility] 12/19 10:25 Order name: Magnesium; Complete Time: : [facility] 12/19 10:25 Order name: NT PRO-BNP; Complete Time: 11: [facility] 12/19 10:25 Order name: PT-INR; Complete Time: 11: [facility] 07/15 10:25 Order name: Troponin (emerg Dept Use Only); Complete Time: 11:31 [facility] 12/19 10:25 Order name: XRAY Chest (1 view); Complete Time: 11:25 [facility] 12/19 10:25 Order name: ETOH Level; Complete Time: 11:30 [facility] 12/19 11:24 Order name: Urine Dipstick--Ancillary (enter results); Complete Time: 13:43 12/19 13:45 Order name: Hand Left 3 View XRAY; Complete Time: 15:27 [facility] 12/19 14:14 Order name: Troponin (emerg Dept Use Only); Complete Time: 15:40 [facility] 12/19 14:14 Order name: ETOH Level; Complete Time: 15:40 [facility] 12/19 10:25 Order name: EKG; Complete Time: 10:27 [facility] 12/19 10:25 Order name: Cardiac monitoring; Complete Time: 10:53 [facility] 12/19 10:25 Order name: EKG - Nurse/Tech; Complete Time: 10:53 [facility] 12/19 10:25 Order name: IV Saline Lock; Complete Time: 10:53 [facility] 12/19 10:25 Order name: Labs collected and sent; Complete Time: 10:53 [facility] 12/19 10:25 Order name: O2 Per Protocol; Complete Time: 10:53 [facility] 12/19 10:25 Order name: O2 Sat Monitoring; Complete Time: 10:53 [facility] 12/19 10:25 Order name: Urine Dipstick-Ancillary (obtain specimen); Complete Time: 13:40 jmm Administered Medications: 10:54 Drug: Valium 5 mg Route: IVP; Site: left antecubital; ph 11:30 Follow up: Response: No adverse reaction ph 10:54 Drug: NS 0.9% 1000 ml Route: IV; Rate: 1 bolus; Site: left antecubital; ph 12:30 Follow up: Response: No adverse reaction; IV Status: Completed infusion; IV Intake: ph 1000ml 13:39 Drug: Ativan 1 mg Route: IVP; Site: left antecubital; ph 14:00 Follow up: Response: No adverse reaction ph 13:40 Drug: NS 0.9% 1000 ml Route: IV; Rate: 1 bolus; Site: left antecubital; ph 14:00 Follow up: Response: No adverse reaction; IV Status: Completed infusion ph Disposition: 18:00 Co-signature as Attending Physician, Angelo Tijerina MD. rn Disposition: 12/20/19 16:54 Patient left the facility after being seen by provider. Preliminary diagnosis are Chest pain, unspecified, Suicidal ideations. - Patient left due to unknown. - Condition is Undetermined. Signatures: Dispatcher [employer] EDBurt Tapia PA PA jmm Nieto, Roman, MD MD rn Calderon, Audri, RN RN aa5 Vesta Sims RN RN ph AcSosa villfaana RN RN ca1 Corrections: (The following items were deleted from the chart) 17:14 16:54 12/20/2019 16:54 Patient left the facility after being seen by provider. ph Preliminary diagnosis is Chest pain, unspecified; Suicidal ideations. Reason stated they are leaving due to unknown. Condition is Undetermined. [facility]
[2019-12-20 17:22] VITALS: TEMP 99.5
[2019-12-20 17:27] VITALS: BP 148/75; O2SAT 100
--- NOTE | 2019-12-21 07:26 | EKG ---
Test Date: 2019-12-20 Test Time: 10:50:13 Dental Floss Packer: RADHA MEASUREMENT RESULTS: Intervals: Rate: 76 ND: 140 QRSD: 94 QT: 410 QTc: 461 [place]: P: 39 ND: 140 QRS: 7 T: 1 INTERPRETIVE STATEMENTS: Sinus rhythm with premature atrial complexes Incomplete right bundle branch block Borderline ECG Compared to ECG 11/15/2019 04:01:47 Atrial premature complex(es) now present Atrial fibrillation no longer present Ventricular premature complex(es) no longer present Electronically Signed On 12-21-19 07:23:30 CDT by Maurice Li
== END 2019-12-20 17:14 | disposition left against medical advice (07) ==
LOC: ER 10:02
DX: R45.851 Suicidal ideations (principal); F17.210 Nicotine dependence, cigarettes, uncomplicated; I48.91 Unspecified atrial fibrillation; Z79.01 Long term (current) use of anticoagulants
CPT/HCPCS: 36415; 71045; 80048; 80076; 80320; 81003; 83735; 83880; 84484; 85025; 85610; 93005; 96361; 96374; 96375; 99284; J3010; J3360; J7030

== ENCOUNTER 2020-01-15 19:18 | Emergency (ER) | payer SELFPAY ==
[2020-01-15] MEDS ORDERED: THIAMINE 200 MG/2 ML INJ ONE (19:59)
[2020-01-15] MEDS ORDERED: Ringers Lactate 1,000 ML IV ONE (19:59)
[2020-01-15] MEDS ORDERED: MULTIVITAMINS 10 ML VIAL (INJ) IV ONE (20:00)
[2020-01-15] MEDS ORDERED: FOLIC ACID 5 MG/ML VIAL ONE (20:01)
[2020-01-15] MEDS ORDERED: NA CHLORIDE 0.9% 1,000 ML ONE (20:01)
[2020-01-15 20:22] LABS: Absolute Lymphocytes (CBC) 2.4 K/uL (0.7-4.9); Basophils % 0.1 % (0-1.3); Hematocrit 44.5 % (39.6-49.0); Lymphocytes % 50.9 % (15.3-44.8); MPV 9.6 fL (7.6-11.3); RBC Red Blood Cell Count 4.44 M/uL (4.33-5.43)
[2020-01-15 20:25] LABS: Protime INR 0.94
[2020-01-15] MEDS ORDERED: KETOROLAC 30 MG/ML INJ ONE (20:27)
[2020-01-15] MEDS ORDERED: ENOXAPARIN 100 MG/ML SYR SQ ONE (20:28)
[2020-01-15] MEDS ORDERED: METOPROLOL TAR 25 MG TAB ONE (20:28)
[2020-01-15 20:44] LABS: ALT/SGPT 103 U/L (12-78); AST/SGOT 81 U/L (15-37); Albumin 3.7 g/dL (3.4-5.0); Alkaline Phosphatase 77 U/L (45-117); BUN Blood Urea Nitrogen 9 mg/dL (7-18); Bicarbonate 29 mmol/L (21-32); Bilirubin Direct 0.3 mg/dL (0-0.2); Glucose Level 90 mg/dL (74-106); Magnesium 1.9 mg/dL (1.8-2.4); Potassium 3.6 mmol/L (3.5-5.1); Protein, Total 7.2 g/dL (6.4-8.2); Sodium Level 144 mmol/L (136-145)
[2020-01-15 21:12] LABS: Barbiturates NEGATIVE (NEGATIVE); Benzodiazepines NEGATIVE (NEGATIVE); Cocaine NEGATIVE (NEGATIVE); METHAMPHETAM NEGATIVE (NEGATIVE); Methadone NEGATIVE (NEGATIVE); Opiates NEGATIVE (NEGATIVE); Phencyclidine NEGATIVE (NEGATIVE); THC Cannibis POSITIVE (NEGATIVE)
--- NOTE | 2020-01-15 21:58 | ER ---
Nurse's Notes [facility] Name: Andi Yusuf Age: 39 yrs Sex: Male : 1980 Arrival Date: 01/15/2020 Time: 19:30 Bed 20 Private MD: Diagnosis: Alcohol abuse;Atrial fibrillation and flutter-with rvr Presentation: 01/14 19:34 Chief complaint: Patient states: BIBA: pt called EMS d/t heart arrythmia. pt has hx of ks7 afib RVR, states his heart rate was in 140's today x 3 hours. Chief complaint: Chief complaint: Patient states: pt also c/o body aches and feeling of pins and needles all over his body. Coronavirus screen: Client denies travel out of the [place] in the last 14 days. At this time, the client does not indicate any symptoms associated with coronavirus-19. The client denies any previous COVID testing. Ebola Screen: Patient negative for fever greater than or equal to 101.5 degrees Fahrenheit, and additional compatible Ebola Virus Disease symptoms Patient denies exposure to infectious person. Patient denies travel to an Ebola-affected area in the 21 days before illness onset. Initial Sepsis Screen: Does the patient meet any 2 criteria? No. Patient's initial sepsis screen is negative. Does the patient have a suspected source of infection? No. Patient's initial sepsis screen is negative. Risk Assessment: Do you want to hurt yourself or someone else? Patient reports no desire to harm self or others. Onset of symptoms. Onset of symptoms was January 15, 2020. 19:34 Method Of Arrival: EMS: [facility] ks7 19:34 Acuity: ANABELLE 3 ks7 Triage Assessment: 19:37 General: Appears in no apparent distress. uncomfortable, Behavior is calm, cooperative. ks7 Pain: Complains of pain in generalized body aches and pins and needles. Cardiovascular: Reports palpitations, Rhythm is sinus tachycardia Chest pain is denied. Historical: - Allergies: 19:37 No Known Allergies; ks7 - Home Meds: 19:37 Metoprolol Tartrate Oral [Active]; Xarelto Oral [Active]; ks7 - PMHx: 19:37 Atrial Fib; Diverticulitis; ks7 - PSHx: 19:37 None; ks7 - Immunization history:: Adult Immunizations up to date. - Social history:: Smoking status: Patient reports the use of cigarette tobacco products, smokes one pack cigarettes per day. Screenin:39 Abuse screen: Denies threats or abuse. Denies injuries from another. Nutritional ks7 screening: No deficits noted. Tuberculosis screening: No symptoms or risk factors identified. Fall Risk None identified. Assessment: 19:39 General: Appears uncomfortable, pt w/hx of afib RVR comes in for heart palpitations ks7 lasting 3 hours today. in ED pt in irregular rhythm 110-120. aaox4, no s/s of distress.. Cardiovascular: Reports palpitations, Rhythm is irregular Chest pain is denied. Respiratory: No deficits noted. 20:39 Reassessment: Patient and/or family updated on plan of care and expected duration. Pain ks7 level reassessed. pt stood at bedside to urinate independently. urine sent to lab. 22:20 Reassessment: pt asleep appears comfortable. ks7 Vital Signs: 19:34 BP 127 / 71; Pulse 115; Resp 18; Temp 98.5(O); Pulse Ox 100% on R/A; Weight 107.95 kg; ks7 Height 6 ft. 3 in. (190.50 cm); Pain 7/10; 19:43 BP 121 / 90; Pulse 100; Resp 18; Pulse Ox 96% ; Pain 7/10; ks7 20:41 BP 126 / 93; Pulse 95; Resp 18; Pulse Ox 100% on R/A; Pain 7/10; ks7 21:00 BP 137 / 99; Pulse 79; Resp 18; Pulse Ox 100% on R/A; Pain 5/10; ks7 21:30 BP 131 / 98; Pulse 89; Resp 18; Pulse Ox 98% on R/A; ks7 22:00 BP 149 / 99; Pulse 70; Resp 18; Temp 98.5(O); Pulse Ox 99% on R/A; Pain 5/10; ks7 19:34 Body Mass Index 29.75 (107.95 kg, 190.50 cm) ks7 ED Course: 19:15 EKG done, by ED staff, reviewed by Jesus Alberto RUANO. jp3 19:30 Patient arrived in ED. cf2 19:33 Veronica Rebollar, RN is Primary Nurse. ks7 19:35 Jesus Alberto Braden PA is PHCP. jr8 19:35 Angelo Tijerina MD is Attending Physician. jr8 19:36 Triage completed. ks7 19:37 Arm band placed on right wrist. ks7 19:39 Patient has correct armband on for positive identification. Placed in gown. Bed in low ks7 position. Call light in reach. Side rails up X2. 19:39 No provider procedures requiring assistance completed. Inserted saline lock: 20 gauge ks7 in left antecubital area, using aseptic technique. 19:59 Initial lab(s) drawn, by ct, sent to lab. Patient maintains SpO2 saturation greater jp3 than 95% on room air. 22:20 Resting quietly. ks7 22:20 IV discontinued, intact, bleeding controlled, No redness/swelling at site. Pressure ks7 dressing applied. Administered Medications: Discontinued: Ringers - Lactated Ringers Solution 1000 ml IV at calculated rate bolus Discontinued: Banana Bag - (NS 0.9% 1000 ml, foLIC Acid 1 mg, Thiamine 100 mg, Multivitamin 1 amp) IV at calculated rate once 19:59 Drug: Ringers - Lactated Ringers Solution 1000 ml Route: IV; Rate: calculated rate; ks7 Site: left antecubital; 19:59 Drug: Banana Bag - (NS 0.9% 1000 ml, foLIC Acid 1 mg, Thiamine 100 mg, Multivitamin 1 ks7 amp) Route: IV; Rate: calculated rate; Site: left antecubital; 20:25 Drug: Lovenox 1 mg/kg Route: Sub-Q; Site: right lower abdomen; ks7 20:26 Drug: Metoprolol 25 mg Route: PO; ks7 20:27 Drug: Ketorolac 15 mg Route: IVP; Site: left antecubital; ks7 Outcome: 21:57 Discharge ordered by . jr8 22:20 Discharged to home ambulatory. ks7 22:20 Condition: good 22:20 Discharge instructions given to patient, Instructed on discharge instructions, medication usage, Demonstrated understanding of instructions, medications, Prescriptions given X 2. 22:51 Patient left the ED. ks7 Signatures: Jesus Alberto Braden PA PA jr8 Ulysses Moore jp3 Loan Ahn cf2 Veronica Rebollar RN RN ks7 Corrections: (The following items were deleted from the chart) 20:44 20:41 BP 147 / ???; Pulse 95bpm; Resp 18bpm; Pulse Ox 100% RA; Pain 12/14; ks7 ks7 22:50 22:49 Reassessment: Patient and/or family updated on plan of care and expected ks7 duration. Pain level reassessed. pt asleep appears comfortable ks7
--- NOTE | 2020-01-15 21:58 | EDPHYS ---
Physician Documentation [facility] Name: Andi Yusuf Age: 39 yrs Sex: Male : 1980 Arrival Date: 01/15/2020 Time: 19:30 Bed 20 Private MD: ED Physician Angelo Tijerina HPI: 01/14 20:56 This 39 yrs old Male presents to ER via EMS with complaints of AFIB. jr8 20:56 The patient presents with a history of irregular heart beat, heart racing. Context: The jr8 symptoms occur at rest. Onset: The symptoms/episode began/occurred acutely, today. Duration: The patient or guardian reports a single episode, that is still ongoing. Modifying factors: The symptoms are aggravated by light activity, The symptoms are alleviated by nothing. Associated signs and symptoms: The patient has no apparent associated signs or symptoms. Severity of symptoms: At their worst the symptoms were moderate in the emergency department the symptoms are unchanged. The patient has experienced similar episodes in the past, chronically. The patient has not recently seen a physician. Patient stated that he has chronic Atrial fib. Has been out of his xarelto and Metoprolol. Has relapsed from his alcohol abuse as well and trying to self detox. Stated that his atrial fib was out of control today so come to be evaluated . Historical: - Allergies: 19:37 No Known Allergies; ks7 - Home Meds: 19:37 Metoprolol Tartrate Oral [Active]; Xarelto Oral [Active]; ks7 - PMHx: 19:37 Atrial Fib; Diverticulitis; ks7 - PSHx: 19:37 None; ks7 - Immunization history:: Adult Immunizations up to date. - Social history:: Smoking status: Patient reports the use of cigarette tobacco products, smokes one pack cigarettes per day. ROS: 20:56 Eyes: Negative for injury, pain, redness, and discharge, ENT: Negative for injury, jr8 pain, and discharge, Neck: Negative for injury, pain, and swelling, Respiratory: Negative for shortness of breath, cough, wheezing, and pleuritic chest pain, Abdomen/GI: Negative for abdominal pain, nausea, vomiting, diarrhea, and constipation, Back: Negative for injury and pain, MS/Extremity: Negative for injury and deformity, Skin: Negative for injury, rash, and discoloration, Neuro: Negative for headache, weakness, numbness, tingling, and seizure. 20:56 Cardiovascular: Positive for palpitations. Exam: 20:56 Eyes: Pupils equal round and reactive to light, extra-ocular motions intact. Lids and jr8 lashes normal. Conjunctiva and sclera are non-icteric and not injected. Cornea within normal limits. Periorbital areas with no swelling, redness, or edema. ENT: Nares patent. No nasal discharge, no septal abnormalities noted. Tympanic membranes are normal and external auditory canals are clear. Oropharynx with no redness, swelling, or masses, exudates, or evidence of obstruction, uvula midline. Mucous membranes moist. Neck: Trachea midline, no thyromegaly or masses palpated, and no cervical lymphadenopathy. Supple, full range of motion without nuchal rigidity, or vertebral point tenderness. No Meningismus. Respiratory: Lungs have equal breath sounds bilaterally, clear to auscultation and percussion. No rales, rhonchi or wheezes noted. No increased work of breathing, no retractions or nasal flaring. Abdomen/GI: Soft, non-tender, with normal bowel sounds. No distension or tympany. No guarding or rebound. No evidence of tenderness throughout. Back: No spinal tenderness. No costovertebral tenderness. Full range of motion. Skin: Warm, dry with normal turgor. Normal color with no rashes, no lesions, and no evidence of cellulitis. MS/ Extremity: Pulses equal, no cyanosis. Neurovascular intact. Full, normal range of motion. Neuro: Awake and alert, GCS 15, oriented to person, place, time, and situation. Cranial nerves II-XII grossly intact. Motor strength 5/5 in all extremities. Sensory grossly intact. Cerebellar exam normal. Normal gait. 20:56 Cardiovascular: Rate: tachycardic, Rhythm: irregularly irregular, Pulses: Pulses are 2+ in bilateral radial, brachial, femoral, popliteal, posterior tibial and and dorsalis pedis arteries.. Heart sounds: normal, Edema: is not appreciated, JVD: is not appreciated. Vital Signs: 19:34 BP 127 / 71; Pulse 115; Resp 18; Temp 98.5(O); Pulse Ox 100% on R/A; Weight 107.95 kg; ks7 Height 6 ft. 3 in. (190.50 cm); Pain 7/10; 19:43 BP 121 / 90; Pulse 100; Resp 18; Pulse Ox 96% ; Pain 7/10; ks7 20:41 BP 126 / 93; Pulse 95; Resp 18; Pulse Ox 100% on R/A; Pain 7/10; ks7 21:00 BP 137 / 99; Pulse 79; Resp 18; Pulse Ox 100% on R/A; Pain 5/10; ks7 21:30 BP 131 / 98; Pulse 89; Resp 18; Pulse Ox 98% on R/A; ks7 22:00 BP 149 / 99; Pulse 70; Resp 18; Temp 98.5(O); Pulse Ox 99% on R/A; Pain 5/10; ks7 19:34 Body Mass Index 29.75 (107.95 kg, 190.50 cm) ks7 MDM: 19:40 Patient medically screened. jr8 20:29 Data reviewed: vital signs, nurses notes, lab test result(s), EKG. Data interpreted: jr8 Pulse oximetry: on room air is 96 %. Interpretation: normal. Counseling: I had a detailed discussion with the patient and/or guardian regarding: the historical points, exam findings, and any diagnostic results supporting the discharge/admit diagnosis, lab results. 21:55 Counseling: I had a detailed discussion with the patient and/or guardian regarding: the jr8 need for outpatient follow up, a family practitioner, to return to the emergency department if symptoms worsen or persist or if there are any questions or concerns that arise at home. Response to treatment: the patient's symptoms have markedly improved after treatment, patient is well hydrated. ED course: Patient feeling better. HR normalized. Will put patient back on xarelto and metoprolol . 01/14 19:41 Order name: Acetaminophen [facility] 01/14 19:41 Order name: Basic Metabolic Panel [facility] 01/14 19:41 Order name: CBC with Diff 01/14 19:41 Order name: ETOH Level 01/14 19:41 Order name: Hepatic Function [facility] 01/14 19:41 Order name: PT-INR [facility] 01/14 19:41 Order name: Ptt, Activated [facility] 01/14 19:41 Order name: Salicylate [facility] 01/14 19:41 Order name: Urine Drug Screen [facility] 01/14 19:41 Order name: Magnesium jr01/14 20:31 Order name: CBC with Automated Diff; Complete Time: 20:51 EDMS 01/14 20:33 Order name: Protime (+INR); Complete Time: 20:51 EDMS 01/14 20:33 Order name: PTT, Activated Partial Thromb; Complete Time: 20:51 EDMS 01/14 20:37 Order name: Alcohol Serum/Plasma; Complete Time: 20:51 EDMS 01/14 19:41 Order name: EKG; Complete Time: 10:48 01/14 19:41 Order name: EKG - Nurse/Tech; Complete Time: 19:44 8 01/14 19:41 Order name: IV Saline Lock; Complete Time: 19:44 01/14 19:41 Order name: Labs collected and sent; Complete Time: 19:44 8 01/14 20:44 Order name: Basic Metabolic Panel; Complete Time: 20:51 EDMS 01/14 20:44 Order name: Liver (Hepatic) Function; Complete Time: 20:51 EDMS 01/14 20:44 Order name: Acetaminophen Level; Complete Time: 20:51 EDMS 01/14 20:44 Order name: Magnesium; Complete Time: 20:51 EDMS 01/14 20:45 Order name: Urine Dipstick--Ancillary (enter results) tt3 01/14 21:00 Order name: Salicylates Level; Complete Time: 21:00 EDMS 01/14 21:12 Order name: Urine Drug Screen; Complete Time: 21:46 EDMS 01/14 19:41 Order name: Urine Dipstick-Ancillary (obtain specimen); Complete Time: 20:40 jr8 Administered Medications: Discontinued: Ringers - Lactated Ringers Solution 1000 ml IV at calculated rate bolus Discontinued: Banana Bag - (NS 0.9% 1000 ml, foLIC Acid 1 mg, Thiamine 100 mg, Multivitamin 1 amp) IV at calculated rate once 19:59 Drug: Ringers - Lactated Ringers Solution 1000 ml Route: IV; Rate: calculated rate; ks7 Site: left antecubital; 19:59 Drug: Banana Bag - (NS 0.9% 1000 ml, foLIC Acid 1 mg, Thiamine 100 mg, Multivitamin 1 ks7 amp) Route: IV; Rate: calculated rate; Site: left antecubital; 20:25 Drug: Lovenox 1 mg/kg Route: Sub-Q; Site: right lower abdomen; ks7 20:26 Drug: Metoprolol 25 mg Route: PO; ks7 20:27 Drug: Ketorolac 15 mg Route: IVP; Site: left antecubital; ks7 Disposition: 01/15/20 21:57 Discharged to Home. Impression: Alcohol abuse, Atrial fibrillation and flutter - with rvr. - Condition is Stable. - Discharge Instructions: Alcohol Intoxication, Atrial Fibrillation. - Prescriptions for Xarelto 20 mg Oral Tablet - take 1 tablet by ORAL route once daily; 30 tablet. metoprolol succinate 100 mg Oral tablet extended release 24 hr - take 1 tablet by ORAL route once daily; 30 tablet. - Medication Reconciliation Form, Thank You Letter, Antibiotic Education, Prescription Opioid Use form. - Follow up: Private Physician; When: 5 - 6 days; Reason: If symptoms return, Recheck today's complaints, Continuance of care, Re-evaluation by your physician. - Problem is new. - Symptoms have improved. Signatures: Dispatcher [employer] EDMS Jesus Alberto Braden PA PA jr8 Veronica Rebollar, RN RN ks7 Corrections: (The following items were deleted from the chart) 22:51 21:57 01/15/2020 21:57 Discharged to Home. Impression: Alcohol abuse; Atrial ks7 fibrillation and flutter - with rvr. Condition is Stable. Forms are Medication Reconciliation Form, Thank You Letter, Antibiotic Education, Prescription Opioid Use. Follow up: Private Physician; When: 5 - 6 days; Reason: If symptoms return, Recheck today's complaints, Continuance of care, Re-evaluation by your physician. Problem is new. Symptoms have improved. jr8
[2020-01-15 22:58] VITALS: TEMP 98.5
[2020-01-15 23:05] VITALS: BP 149/99; O2SAT 99
[2020-01-16 10:54] LABS: Urine Blood NEGATIVE (NEG); Urine Glucose NEGATIVE (NEG); Urine Protein NEGATIVE (NEG)
--- NOTE | 2020-01-17 12:38 | EKG ---
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
== END 2020-01-15 22:51 | disposition home or self-care (01) ==
LOC: ER 19:18
DX: I48.91 Unspecified atrial fibrillation (principal); F10.10 Alcohol abuse, uncomplicated; I48.92 Unspecified atrial flutter; F17.210 Nicotine dependence, cigarettes, uncomplicated; Z79.01 Long term (current) use of anticoagulants
CPT/HCPCS: 36415; 80048; 80076; 80307; 80320; 80329; 81003; 83735; 85025; 85610; 85730; 93005; 96372; 96374; 96375; 99285; J1650; J3411; J7030; J7120